=== PATIENT | male | born 1955 | race Caucasian/White ===

== ENCOUNTER 2019-07-12 14:53 | Inpatient (IN) | payer MEDICARE ==
[2019-07-12] VITALS (8 sets, daily range): BP systolic 111–148; BP diastolic 55–73
[~2019-07-12] VITALS: Ht 167.6 cm; Wt 108.9 kg
--- NOTE | 2019-07-12 07:40 | NUR ---
PATIENT VS STABLE, ON 3L NC SATURATING 96%, HIGH FOWL[place] POSITION. SAFETY MEASURES IN PLACE.. REPORT GIVEN TO PM NURSE FOR MANASA.
--- NOTE | 2019-07-12 15:00 | NUR ---
ALMA ROSA, FROM SNF, C/O BLE EDEMA x 2 WEEKS. PATIENT A/OX4, BREATHING EVEN AND UNLABORED, ON O2 AT 2LPM VIA NC. NEEDS ATTENDED. KEPT COMFORTABLE.
[2019-07-12] MEDS ORDERED: FUROSEMIDE 40 MG/4 ML VIAL ONE (15:10)
[2019-07-12 15:27] LABS: BASOPHILS % (AUTO) 0.7 % (0.0-2.0); EOSINOPHILS % (AUTO) 4.9 % (0.0-6.0); HEMATOCRIT 33 % (39-51); HEMOGLOBIN 10.8 g/dL (13.5-17.5); LYMPHOCYTES # (AUTO) 1.2 /CMM (0.8-4.8); LYMPHOCYTES % (AUTO) 19.4 % (20.0-44.0); MEAN CORPUSCULAR HGB CONC 33 g/dl (31.0-36.0); MEAN CORPUSCULAR VOLUME 93 fL (80-96); MONOCYTES # (AUTO) 0.6 /CMM (0.1-1.30); MONOCYTES % (AUTO) 9.4 % (2.0-12.0); NEUTROPHILS # (AUTO) 3.9 /CMM (1.8-8.9); NEUTROPHILS % (AUTO) 65.6 % (43.0-81.0); PLATELET COUNT (AUTO) 139 /CMM (150-450); RED BLOOD CELL COUNT(AUTO) 3.57 MIL/uL (4.5-6.0); WHITE BLOOD COUNT (AUTO) 5.9 K/uL (4.3-11.0)
[2019-07-12] MEDS ORDERED: FUROSEMIDE 40 MG/4 ML VIAL IV ONE (15:30)
[2019-07-12 15:33] LABS: CALCIUM, SERUM 8.6 mg/dL (8.5-10.1); CARBON DIOXIDE 30 mmol/L (21-32); CHLORIDE 107 mmol/L (98-107); CREATININE 1.9 mg/dL (0.6-1.3); GLUCOSE 240 mg/dL (74-106); POTASSIUM 4.3 mmol/L (3.5-5.1); SODIUM SERUM 145 mmol/L (136-145); UREA NITROGEN, BLOOD 42 mg/dL (7-18)
[2019-07-12 15:45] LABS: ALANINE AMINOTRANSFERASE 22 U/L (12-78); ALBUMIN 2.9 g/dL (3.4-5.0); ALKALINE PHOSPHATASE 117 U/L (46-116); ASPARTATE AMINOTRANSFERASE 20 U/L (15-37); B-TYPE NATRIURETIC PEPTIDE 1965 PG/ML (0-125); BILIRUBIN,TOTAL 0.3 mg/dL (0.2-1.0); MAGNESIUM 1.5 mg/dL (1.8-2.4); TOTAL PROTEIN, SERUM 7.3 g/dL (6.4-8.2)
[2019-07-12 15:51] LABS: CHOLESTEROL 125 mg/dL (<200); HDL CHOLESTEROL 34 mg/dL (40-60); LDL 65 mg/dL (0-99); TRIGLYCERIDES 216 mg/dL (30-150)
--- NOTE | 2019-07-12 16:00 | NUR ---
PATIENT GIVEN URINAL BUT UNABLE TO URINATE. URINE OBTAINED VIA STRAIGHT CATHETER, PATIENT AGREED DUE TO INCONTINENCE
[2019-07-12 16:32] LABS: APPEARANCE,URINE Clear (CLEAR); BILIRUBIN,URINE Negative (NEGATIVE); BLOOD, URINE Trace-intact Ery/uL (NEGATIVE); COLOR,URINE Yellow (YELLOW); KETONES,URINE Negative (NEGATIVE); LEUKOCYTE ESTERASE ,URINE Trace (NEGATIVE); NITRITE, URINE Negative (NEGATIVE); PROTEIN,URINE 100 mg/dl (NEGATIVE); UGLUCOSE Negative (NEGATIVE); UROBILINOGEN,URINE 0.2 EU/dL (0.2)
--- NOTE | 2019-07-12 16:43 | NUR ---
CALLED OFFICE OF DR VENEGAS, LEFT VOICEMAIL.
[2019-07-12 16:48] LABS: BACTERIA,URINE Rare /HPF (None Seen); RBC,URINE 2-3/HPF /HPF (0-2); SQUAMOUS EPITHELIAL CELL,UR Few /HPF (None Seen); URINE AMORPHOUS URATE Few /HPF (None Seen)
--- NOTE | 2019-07-12 16:53 | NUR ---
ROOM 112-2
[2019-07-12] MEDS ORDERED: LATA7.5D OP (16:54)
[2019-07-12] MEDS ORDERED: FLUT16SP BNOSTRILS (16:54)
[2019-07-12] MEDS ORDERED: METO50TA16 PO (16:54)
[2019-07-12] MEDS ORDERED: CETI-108 PO (16:54)
[2019-07-12] MEDS ORDERED: FURO-144 PO (16:54)
[2019-07-12] MEDS ORDERED: INSU100V7 SQ (16:54)
[2019-07-12] MEDS ORDERED: FLUO-120 PO (16:54)
[2019-07-12] MEDS ORDERED: IBUP-1953 PO (16:54)
[2019-07-12] MEDS ORDERED: GLIM4TAB4 PO (16:54)
[2019-07-12] MEDS ORDERED: POTA20TA83 PO (16:54)
[2019-07-12] MEDS ORDERED: LISI-603 PO (16:54)
[2019-07-12] MEDS ORDERED: TAMS-12 PO (16:54)
[2019-07-12] MEDS ORDERED: CYAN500T65 PO (16:54)
[2019-07-12] MEDS ORDERED: CHOL500052 PO (16:54)
[2019-07-12] MEDS ORDERED: METF500S7 PO (16:54)
[2019-07-12] MEDS ORDERED: ASPI-605 PO (16:54)
[2019-07-12] MEDS ORDERED: GABA600T12 PO (16:54)
--- NOTE | 2019-07-12 17:36 | NUR ---
REPORT GIVEN TO LIZA SALVADOR FOR MANASA. PATIENT TRANSFERRED VIA ACLS PROTOCOL. NO DISTRESS NOTED
--- NOTE | 2019-07-12 17:45 | NUR ---
MOTOR ROUTE CARRIER NOTES RECEIVED REPORT FROM MAHOGANY, ER NURSE. RECEIVED PT A/OX4. ARRIVED VIA GURNEY WITH MILD SOB, PUT PT ON NC 2L, HIGH [place] POSITION AND CALLED RT. ON TELE MONITOR SR 68. NO COMPLAIN OF CHEST PAIN. PAON ON BOTH LOWER EXTREMITIES. PATIENT UNABLE TO AMBULATE. PATIENT HAS BLE REDNNESS, EDEMA, WITH SCAR LOOKS LIKE CELLULITIS. SACRAR OPEN WOUND. BOTH SOLES RED AND SCARING. L THIGH REDNESS.RIGHT THIGH EXCORIATION. WOUND CONSULT ORDERED. IV ACCESS RFA #18, SL, INTaCT AND FLUSHED WELL.LUNGS are clear and bowel sounds present.patient on diaper. ALL SAFTEY MEASURE IN PLACE. BED LOCKED AND LOW, SIDE RIALS UPX3. CALL LIGHT IN REACH.
[2019-07-12] MEDS ORDERED: DEXTROSE 50%-WATER 50 ML DISP.SYRIN IV PRN (18:00)
[2019-07-12] MEDS ORDERED: ONDANSETRON HCL/PF 4 MG/2 ML VIAL IVP PRN (18:00)
[2019-07-12] MEDS: GABAPENTIN 300 MG CAPSULE PO SCH (19:48)
[2019-07-12] MEDS: NITROGLYCERIN 30 GM TUBE TP SCH (19:50)
--- NOTE | 2019-07-12 20:03 | NUR ---
ELECTRICAL ASSEMBLY SUPERVISOR NOTE PATIENT CALLED OUT FOR HELP C/O OF "I CANT BREATHE." PATIENT CURRENTLY ON 4 L NC SATURATION 86% PATIENT PLACED ON SIMPLE MASK AT 6L 02 SATURATION WENT UP TP 94% PATIENT STILL C/O SOB/ INCREASED WORK OF BREATHING, LUNG SOUNDS DIMINISHED AT THE BASES. MD RUBI MALIK ORDERED ALBUTEROL BREATHING TREATMENTS PRN AND Q6 WHILE AWAKE. RN WILL CONTINUE TO CLOSELY MONITOR.
[2019-07-12] MEDS: ENOXAPARIN SODIUM 40 MG/0.4 ML DISP.SYRIN SQ SCH (20:18)
[2019-07-12] MEDS: ALBUTEROL HALF STRENGTH 1.25 MG/3 ML VIAL.NEB NEB SCH (20:22)
--- NOTE | 2019-07-12 20:23 | NUR ---
TOYS AND GAMES HAND FINISHER NOTE PATIENT STARTED ON BREATHING TREATMENT O2 SATURATION 95% PATIENT STILL C/O DIFFICULTY BREATHING RN STILL CLOSELY MONITORING.
[2019-07-12] MEDS ORDERED: ALBUTEROL HALF STRENGTH 1.25 MG/3 ML VIAL.NEB NEB PRN (20:30)
[2019-07-12 20:44] LABS: ABG OXYGEN SATURATION 94.6 % (92.0-98.5); ABG PCO2 84.6 mmHg (35.0-45.0); ABG PH 7.149 (7.350-7.450); ABG PO2 95.5 mmHg (75.0-100.0); AaDO2 180.5 mmHg; COHb 1.4 % (0.5-1.5); MetHb 0.4 % (0.0-1.5); O2Hb 92.9 % (94.0-97.0); SITE, ABG Right Radial; VENT MODE, BG simplew mask 8L
--- NOTE | 2019-07-12 20:45 | NUR ---
CARD LACER NOTE PATIENT STILL NOTED TO BE IN RESP DISTRESS, STAT ABG ORDERED.
--- NOTE | 2019-07-12 20:50 | NUR ---
SATELLITE DISH INSTALLER NOTE RESULTS FOR ABG 7.149 pH with Co2 84.6. [facility] NOTIFIED, TRANSFER TO ICU WITH BIPAP 14/6 BACK UP RATE 18 FIO2 40
[2019-07-12] MEDS ORDERED: FUROSEMIDE 20 MG/2 ML VIAL IV SCH (21:00)
--- NOTE | 2019-07-12 21:00 | NUR ---
DRY GOODS CLERK NOTE PATIENT TRANSFERRED TO BED 259 REPORT GIVEN TO ICU NURSE
--- NOTE | 2019-07-12 21:12 | NUR ---
RT NOTE POST ABG RESULTS, PT TRANSFERRED TO ICU 259 AND PLACED ON BIPAP PER MD ORDER. BIPAP ALARMS APPEAR TO BE FUNCTIONING PROPERLY. BIPAP PLUGGED INTO RED OUTLET. NO SOB NOTED. Addendum: 07/12/19 at 2303 by TOMI BLAIR RT MEPILEX IN PLACE FOR SKIN INTEGRITY.
--- NOTE | 2019-07-12 21:12 | NUR ---
ICU/EBAY RESELLER RECEIVED REPORT FROM FANY NURSE. PT PLACED ON MONITOR. RT HERE TO PLACE PT ON BIPAP.
--- NOTE | 2019-07-12 21:30 | NUR ---
ICU/BEAN PICKER STAT CHEST XRAY WAS DONE DUE TO THE POSSIBILITY THAT PT COULD HAVE ASPIRATED.
--- NOTE | 2019-07-12 21:55 | NUR ---
ICU/MEDICAL ASSISTANT PRN COOMBS CATH WAS PLACE. PT TOLERATED THIS WELL. WILL MONITOR THIS PT'S OUTPUT. LASIX 80MG GIVEN SINCE ADMISSION TO THE HOSPITAL.
[2019-07-12] MEDS: INSULIN GLARGINE, 100 UNIT/ML CARTRIDGE SQ SCH (22:00)
--- NOTE | 2019-07-12 22:40 | NUR ---
ICU/HOOP COILER PT'S ABG WAS DONE, VALUES APPEAR TO BE IMPROVING, HOWEVER THE RT INCREASED THE FIO2 TO 50% FROM 40%. PH-7.284, PCO2-56.6, PO2-65.9, HCO3-26.2. CHARGE NURSE AWARE OF LAB VALUES. WILL MONITOR THIS PT ACCORDINGLY.
[2019-07-12 22:45] LABS: ABG BASE EXCESS -1.1 mmol/L; ABG OXYGEN SATURATION 89.7 % (92.0-98.5); ABG PCO2 56.6 mmHg (35.0-45.0); ABG PH 7.284 (7.350-7.450); ABG PO2 65.9 mmHg (75.0-100.0); AaDO2 154.2 mmHg; MetHb 0.4 % (0.0-1.5); O2Hb 88.4 % (94.0-97.0); SITE, ABG Right Radial
[2019-07-12] MEDS: LATANOPROST EYE DROP 0.005% 2.5 ML BOTTLE OP SCH (23:07)
[2019-07-12] MEDS: BLOOD SUGAR DIAGNOSTIC 1 EACH STRIP VI SCH (23:07)
--- NOTE | 2019-07-12 23:20 | NUR ---
ICU/HOME HEALTH CARE CASE MANAGER MD VENEGAS CALLED ABOUT THE LANTUS 65 UNITS THAT WAS TO BE GIVEN AT 2200 BS WAS 207. HOWEVER PT IS ON BIPAP CURRENTLY WITH NO IVF. SAID DON'T GIVE THE LANTUS 65 NOW HOWEVER DO GIVE THE SHORT ACTING. WILL CONTINUE TO MONITOR THIS PT AND HIS BLOOD SUGAR.
[2019-07-13] VITALS (36 sets, daily range): BP systolic 77–141; BP diastolic 31–83
[2019-07-13] MEDS: *INSULIN REGULAR(HUMULIN R)HUM 100 UNIT/ML VIAL SQ PRN ×2 (00:04→12:09)
[2019-07-13] MEDS: NITROGLYCERIN 30 GM TUBE TP SCH ×4 (00:07→17:22)
--- NOTE | 2019-07-13 00:10 | NUR ---
ICU/STONE CARRIAGE OPERATOR PT'S MIDNIGHT BLOOD SUGAR IS 207. THERE IS COVERAGE FOR THIS PER MD ORDERS AND HOSPITAL PROTOCOL. PT WILL CONTINUE TO MONITOR THIS SUGARS ORDERS. PT WAS TURNED AND REPOSITIONED FOR COMFORT AND CARE.
--- NOTE | 2019-07-13 02:45 | NUR ---
ICU/RUBBER GOODS FINISHER PT WAS GIVEN AM CARE.. PT TOLERATED THIS WELL, REMAINS ON CURRENT BIPAP SETTINGS WITH SATURATION AT 98%. PT WAS TURNED AND REPOSITIONED FOR COMFORT AND CARE. WILL CONTINUE TO MONITOR THIS PT.
--- NOTE | 2019-07-13 04:05 | NUR ---
ICU/FLIGHT SUPERINTENDENT AM LABS WERE DONE AWAIT FOR ANY ABNORMAL LABS
[2019-07-13 04:54] LABS: BASOPHILS % (AUTO) 0.5 % (0.0-2.0); EOSINOPHILS % (AUTO) 0.7 % (0.0-6.0); HEMATOCRIT 31 % (39-51); HEMOGLOBIN 10.3 g/dL (13.5-17.5); LYMPHOCYTES % (AUTO) 15.7 % (20.0-44.0); MEAN CORPUSCULAR HGB CONC 34 g/dl (31.0-36.0); MEAN CORPUSCULAR VOLUME 93 fL (80-96); MONOCYTES # (AUTO) 0.7 /CMM (0.1-1.30); MONOCYTES % (AUTO) 10.1 % (2.0-12.0); NEUTROPHILS # (AUTO) 4.8 /CMM (1.8-8.9); PLATELET COUNT (AUTO) 142 /CMM (150-450); RED BLOOD CELL COUNT(AUTO) 3.29 MIL/uL (4.5-6.0); WHITE BLOOD COUNT (AUTO) 6.6 K/uL (4.3-11.0)
[2019-07-13 05:04] LABS: CALCIUM, SERUM 9.1 mg/dL (8.5-10.1); CARBON DIOXIDE 33 mmol/L (21-32); CHLORIDE 110 mmol/L (98-107); CREATININE 1.9 mg/dL (0.6-1.3); GLUCOSE 132 mg/dL (74-106); POTASSIUM 4.5 mmol/L (3.5-5.1); SODIUM SERUM 147 mmol/L (136-145); UREA NITROGEN, BLOOD 38 mg/dL (7-18)
--- NOTE | 2019-07-13 05:20 | NUR ---
ICU/SIGNING TEACHER PRIMARY MD VENEGAS CAME TO SEE PT, NEW ORDERS WERE GIVEN AND NOTED AND CARRIED OUT.
[2019-07-13] MEDS ORDERED: ZOSYN IVPB 3.375 G in IV D5W 50ml IV ONE (06:30)
--- NOTE | 2019-07-13 06:30 | NUR ---
ICU/FUELER PHARMACY CALLED TO VERIFY ORDERS. ZOSYN STARTED BY RN.
[2019-07-13] MEDS ORDERED: PIPERACILLIN /TAZOBACTAM 3.375 G VIAL IV ONE (06:36)
[2019-07-13] MEDS ORDERED: FEE PK DOSING 1 MIN EA MC ONE (07:24)
[2019-07-13] MEDS ORDERED: VANCOMYCIN 1.5 GM in IV D5W 500 ML IV SCH (07:30)
[2019-07-13] MEDS ORDERED: VANCOMYCIN 1.75 GM in IV D5W 500 ML IV ONE (07:30)
--- NOTE | 2019-07-13 07:40 | NUR ---
ICU/RN PT IS ON THE BED.AWAKE ,ALERT,ORIENTED.V/S STABLE ,AFEBRILE.NO PAIN REPORTED AT THIS TIME.PT IS ON BI-PAP.SAT O2-100%..IV -HL. F/C DRAINING WITH YELLOW URINE.PT HAS GENERALIZED EDEMA.WOUND ON THE LOWER BACK AND REDNESS ON MIMI AREA. BILATERAL LOWER LEGS WOUNDS,RED SWOLLEN AND WARM.
[2019-07-13] MEDS: BLOOD SUGAR DIAGNOSTIC 1 EACH STRIP VI SCH ×4 (07:43→21:58)
[2019-07-13] MEDS: METOPROLOL TARTRATE 50 MG TABLET PO SCH ×2 (08:20→17:00)
[2019-07-13] MEDS: ASPIRIN EC 81 MG TABLET.DR PO SCH (08:20)
[2019-07-13] MEDS: FLUOXETINE HCL 20 MG CAPSULE PO SCH (08:21)
[2019-07-13] MEDS: TAMSULOSIN 0.4 MG CAP.SR.24H PO SCH (08:23)
[2019-07-13] MEDS: FUROSEMIDE 100 MG/10 ML VIAL IV SCH ×3 (08:23→15:41)
[2019-07-13] MEDS: FLUTICASONE PROPIONATE 16 GM BOTTLE NS SCH (08:23)
[2019-07-13] MEDS: GABAPENTIN 300 MG CAPSULE PO SCH ×3 (08:23→17:22)
[2019-07-13] MEDS: ALBUTEROL HALF STRENGTH 1.25 MG/3 ML VIAL.NEB NEB SCH ×3 (08:39→19:26)
[2019-07-13 09:00] LABS: THYROID STIMULATING HORMONE 4.063 uIU/mL (0.358-3.74)
[2019-07-13] MEDS ORDERED: METFORMIN 500 MG TABLET PO SCH (09:00)
[2019-07-13] MEDS ORDERED: LISINOPRIL (20MG) 20 MG TABLET PO SCH (09:00)
[2019-07-13] MEDS ORDERED: IBUPROFEN 400 MG TABLET PO SCH (09:00)
[2019-07-13] MEDS ORDERED: POTASSIUM CHLORIDE 20 MEQ TAB.PRT.SR PO SCH (09:00)
[2019-07-13] MEDS ORDERED: ASPIRIN 81 MG TAB.CHEW PO SCH (09:00)
--- NOTE | 2019-07-13 09:00 | NUR ---
ICU/RN PT IS OFF BI-PAP.ON 3L N/C SAT O2-92%.DUE MEDS ARE GIVEN ORDERED.PT EATS BREAKFAST 100% FROM HIS TRAY WITH MINIMAL ASSISTANCE. ABG DONE.
[2019-07-13] MEDS ORDERED: ALBUTEROL HALF STRENGTH 1.25 MG/3 ML VIAL.NEB NEB PRN (09:30)
[2019-07-13 09:58] LABS: ABG BASE EXCESS 2.5 mmol/L; ABG PCO2 48.7 mmHg (35.0-45.0); ABG PO2 62.1 mmHg (75.0-100.0); AaDO2 116.3 mmHg; COHb 0.8 % (0.5-1.5); MetHb 0.4 % (0.0-1.5); O2Hb 89.9 % (94.0-97.0); SITE, ABG Right Radial; VENT MODE, BG nasal cannula
[2019-07-13] MEDS: GLIMEPIRIDE 4 MG TABLET PO SCH ×2 (10:04→17:22)
--- NOTE | 2019-07-13 11:00 | NUR ---
ICU/RN PT C/O OF SOB.ON 3L N/S SAT O2-88%,RR-33.RT NOTIFIED.PLACED BACK ON BI-PAP.CONTINUE MONITORING.
[2019-07-13] MEDS: PIPERACILLIN /TAZOBACTAM 3.375 G in IV NS 0.9% 50 ML IV SCH ×3 (11:35→23:29)
[2019-07-13] MEDS ORDERED: PIPERACILLIN /TAZOBACTAM 3.375 G in IV D5W 100 ML IV SCH (12:00)
[2019-07-13] MEDS: SOD FERRIC GLUC 125 MG in IV NS 0.9% 100 ML IV SCH (15:08)
[2019-07-13 15:17] LABS: CREATININE, URINE 33.7 MG/DL (30.0-125.0); URINE TOTAL PROTEIN 52.6 mg/dL (0-11.9)
[2019-07-13 15:21] LABS: APPEARANCE,URINE CLEAR (CLEAR); BILIRUBIN,URINE NEGATIVE (NEGATIVE); BLOOD, URINE SMALL Ery/uL (NEGATIVE); COLOR,URINE YELLOW (YELLOW); KETONES,URINE NEGATIVE (NEGATIVE); LEUKOCYTE ESTERASE ,URINE NEGATIVE (NEGATIVE); NITRITE, URINE NEGATIVE (NEGATIVE); PH,URINE 5.5 (5.0-8.0); PROTEIN,URINE 30 mg/dl (NEGATIVE); UGLUCOSE NEGATIVE (NEGATIVE); UROBILINOGEN,URINE 0.2 EU/dL (0.2)
[2019-07-13 15:42] LABS: BACTERIA,URINE None seen /HPF (None Seen); MUCUS,URINE Few /LPF (None Seen); SQUAMOUS EPITHELIAL CELL,UR Few /HPF (None Seen)
[2019-07-13 15:56] LABS: EOSINOPHIL,URINE None Seen
--- NOTE | 2019-07-13 16:59 | NUR ---
ICU/RN PM CARE PROVIDED.PT PLACED ON [employer] MATRASS.WOUND CARE DONE ORDERED.DUE MEDS ARE GIVEN ORDERED.PT IS ON BI-PAP FIO2-40%,SAT O2-99-100%. V/S STABLE,AFEBRILE.NO PAIN REPORTED AT THIS TIME.HR-SR-SB -55 BPM. BS-73.CONTINUE MONITORING.
[2019-07-13] MEDS: LACTOBACILLUS RHAMNOSUS GG 1 EACH CAP.SPRINK PO SCH (17:22)
[2019-07-13] MEDS ORDERED: IV NS 0.9% 250 ML IV PRN (19:30)
--- NOTE | 2019-07-13 19:30 | NUR ---
ICU NOTES RECEIVED PT ON BIPAP,RATE OF18,40% FIO2,SAT OF 94%.OPENS EYES WHEN NAME CALLED.FOLLOWS SIMPLE VERBAL COMMANDS.
[2019-07-13] MEDS: ENOXAPARIN SODIUM 40 MG/0.4 ML DISP.SYRIN SQ SCH (20:58)
[2019-07-13] MEDS: Z GUARD REMEDY 2 OZ OINT TP SCH (20:59)
[2019-07-13] MEDS: INSULIN GLARGINE, 100 UNIT/ML CARTRIDGE SQ SCH (21:57)
[2019-07-13] MEDS: LATANOPROST EYE DROP 0.005% 2.5 ML BOTTLE OP SCH (21:57)
--- NOTE | 2019-07-13 22:00 | NUR ---
ICU NOTES BS=66MG/DL.GIVEN CUP OF PUDDING AND 1CUP OF ORANGE JUICE AND I/C WATER PER REQUEST.CONTINUES TO DIURESE.
[2019-07-14] VITALS (24 sets, daily range): BP systolic 110–154; BP diastolic 39–73
[2019-07-14] MEDS: NITROGLYCERIN 30 GM TUBE TP SCH ×4 (00:37→18:04)
[2019-07-14 04:27] LABS: BASOPHILS % (AUTO) 0.7 % (0.0-2.0); EOSINOPHILS % (AUTO) 3.1 % (0.0-6.0); HEMATOCRIT 30 % (39-51); HEMOGLOBIN 9.6 g/dL (13.5-17.5); LYMPHOCYTES % (AUTO) 18.5 % (20.0-44.0); MEAN CORPUSCULAR HGB CONC 33 g/dl (31.0-36.0); MEAN CORPUSCULAR VOLUME 94 fL (80-96); MONOCYTES # (AUTO) 0.6 /CMM (0.1-1.30); MONOCYTES % (AUTO) 10.9 % (2.0-12.0); NEUTROPHILS # (AUTO) 3.6 /CMM (1.8-8.9); NEUTROPHILS % (AUTO) 66.8 % (43.0-81.0); PLATELET COUNT (AUTO) 117 /CMM (150-450); RED BLOOD CELL COUNT(AUTO) 3.15 MIL/uL (4.5-6.0); WHITE BLOOD COUNT (AUTO) 5.4 K/uL (4.3-11.0)
[2019-07-14 04:46] LABS: ALBUMIN 2.5 g/dL (3.4-5.0); BILIRUBIN,TOTAL 0.5 mg/dL (0.2-1.0); CALCIUM, SERUM 8.8 mg/dL (8.5-10.1); CREATININE 1.9 mg/dL (0.6-1.3); MAGNESIUM 1.4 mg/dL (1.8-2.4); PHOSPHORUS 3.9 mg/dL (2.5-4.9); POTASSIUM 3.6 mmol/L (3.5-5.1); TOTAL PROTEIN, SERUM 6.5 g/dL (6.4-8.2)
[2019-07-14] MEDS: PIPERACILLIN /TAZOBACTAM 3.375 G in IV NS 0.9% 50 ML IV SCH (05:23)
[2019-07-14] MEDS: BLOOD SUGAR DIAGNOSTIC 1 EACH STRIP VI SCH ×4 (07:44→21:50)
--- NOTE | 2019-07-14 07:45 | NUR ---
ICU/RN PT IS AWAKE.ALERT,ORIENTED.V/S STABLE.T-100 F.ON BI-PAP.FIO2-40%.SAT O2-100%.SR -65 BPM ON MONITOR.F/C DRAINING WITH YELLOW URINE.WOUNDS COVERED WITH MEPILEX. BLE EDEMA NOTED , REDNESS AND WOUNDS, WARM TO TOUCH.REPOSITION FOR COMFORT.
[2019-07-14] MEDS: ALBUTEROL HALF STRENGTH 1.25 MG/3 ML VIAL.NEB NEB SCH ×3 (08:02→19:34)
[2019-07-14] MEDS: FLUTICASONE PROPIONATE 16 GM BOTTLE NS SCH (08:08)
[2019-07-14] MEDS: LACTOBACILLUS RHAMNOSUS GG 1 EACH CAP.SPRINK PO SCH ×2 (08:08→16:46)
[2019-07-14] MEDS: ASPIRIN EC 81 MG TABLET.DR PO SCH (08:08)
[2019-07-14] MEDS: GABAPENTIN 300 MG CAPSULE PO SCH ×3 (08:08→16:45)
[2019-07-14] MEDS: GLIMEPIRIDE 4 MG TABLET PO SCH ×2 (08:08→16:45)
[2019-07-14] MEDS: FLUOXETINE HCL 20 MG CAPSULE PO SCH (08:08)
[2019-07-14] MEDS: TAMSULOSIN 0.4 MG CAP.SR.24H PO SCH (08:09)
[2019-07-14] MEDS: Z GUARD REMEDY 2 OZ OINT TP SCH ×2 (08:09→21:23)
[2019-07-14] MEDS: VANCOMYCIN 1.25 GM in IV D5W 250 ML IV SCH (08:09)
[2019-07-14] MEDS: METOPROLOL TARTRATE 50 MG TABLET PO SCH ×2 (08:09→16:46)
[2019-07-14 09:09] LABS: ABG BASE EXCESS 7.7 mmol/L; ABG OXYGEN SATURATION 92.4 % (92.0-98.5); ABG PCO2 45.8 mmHg (35.0-45.0); ABG PH 7.466 (7.350-7.450); ABG PO2 65.6 mmHg (75.0-100.0); MetHb 0.8 % (0.0-1.5); O2Hb 91.7 % (94.0-97.0); SITE, ABG Left Radial; VENT MODE, BG Nasal Cannula
--- NOTE | 2019-07-14 09:30 | NUR ---
ICU/RN PT IS OFF BI-PAP.ON 3L N/C SAT O2-96-97%.V/S STABLE.PT EATS 100% FROM HIS MEAL TRAY.DUE MEDS ARE GIVEN ORDERED.LABS REVIEW.MD NOTIFIED.REPOSITION FOR COMFORT.
--- NOTE | 2019-07-14 09:56 | NUR ---
WOUND CARE CONSULT: PT PRESENTS WITH MULTIPLE SKIN ISSUES INCLUDING ABDOMINAL FOLD REDNESS, REDNESS WITH EDEMA TO BILATERAL LOWER LEGS, THICKENED SCARRING TO BUTTOCKS WITH INCONTINENCE/SHEARING ASSOCIATED SKIN DAMAGE TO THIGHS AND BUTTOCKS, PRESENT ON ADMISSION. CORIN MOON NOTED. RECOMMENDATIONS MADE FOR SKIN PROTECTION AND CARE. DISCUSSED WITH NURSING STAFF. PT ON FIRST STEP [facility]. WILL SEE PRN. BRUCE IN AGREEMENT WITH PLAN OF CARE. Addendum: 07/14/19 at 0958 by JAKY MARSHALL WNDNU Amended: Links added.
[2019-07-14] MEDS: Magnesium 1GM/D5W 100ML PREMIX 100 ML IV SCH ×3 (10:04→12:03)
[2019-07-14] MEDS: PIPERACILLIN /TAZOBACTAM 3.375 G in IV D5W 50 ML IV SCH ×2 (11:32→17:16)
--- NOTE | 2019-07-14 12:00 | NUR ---
ICU/RN PT IS SOB, SAT O2-92%,RR-45 BPM.RT NOTIFIED.PT PLACED BACK ON BI-PAP.CONTINUE MONITORING.
[2019-07-14] MEDS: INSULIN REGULAR, HUMAN 100 UNIT/ML 3 ML VIAL SQ PRN (13:42)
[2019-07-14] MEDS: SOD FERRIC GLUC 125 MG in IV NS 0.9% 100 ML IV SCH (14:02)
--- NOTE | 2019-07-14 17:00 | NUR ---
ICU/RN PM CARE PROVIDED.PT IS ON CONTINUOS BI-PAP. REDNESS ON THE NOSE NOTED FROM THE MASK.PT HAS MEPILEX ON.UNABLE TO DO PHOTO AT THIS TIME.WOUND DRESSING DONE ORDERED.
[2019-07-14] MEDS: *INSULIN REGULAR(HUMULIN R)HUM 100 UNIT/ML VIAL SQ PRN ×2 (18:07→21:55)
--- NOTE | 2019-07-14 19:34 | NUR ---
RT Pt received on BiPAP with noted settings. BiPAP is plugged into red outlet. No SOB or respiratory distress noted. Addendum: 07/15/19 at 0151 by CATARINA MACARIO RT Amended: Links added.
--- NOTE | 2019-07-14 19:45 | NUR ---
ICU/SENIOR MORTGAGE LOAN PROCESSOR RECEIVED REPORT FROM DAY SHIFT NURSE. SEE FLOWSHEET FOR ASSESSMENT. THERE ARE A COUPLE SKIN ISSUES THAT PT HAS, WHICH IS ADDRESSED ON FLOWSHEET ALONG WITH THE INTERVENTION TO EACH.PT IS ALERT X 3.PT IS CURRENTLY ON BIPAP TOLERATING THESE SETTINGS WITH SATURATION AT 93-94%. PT WAS TURNED AND REPOSITIONED FOR COMFORT AND CARE. WILL CONTINUE TO MONITOR THIS PT.
[2019-07-14] MEDS: LATANOPROST EYE DROP 0.005% 2.5 ML BOTTLE OP SCH (21:23)
[2019-07-14] MEDS: ACETAMINOPHEN 325 MG TABLET PO PRN (21:24)
[2019-07-14] MEDS: ENOXAPARIN SODIUM 40 MG/0.4 ML DISP.SYRIN SQ SCH (21:25)
--- NOTE | 2019-07-14 21:30 | NUR ---
ICU/METALS ANALYST PT COMPLAINED ABOUT PAIN, GAVE TYLENOL 650MG PO FOR THIS. WILL CONTINUE TO MONITOR HIS PAIN. CALL LIGHT IN REACH.
[2019-07-14] MEDS: INSULIN GLARGINE, 100 UNIT/ML CARTRIDGE SQ SCH (21:50)
--- NOTE | 2019-07-14 22:10 | NUR ---
ICU/RISK PREVENTION ENGINEER PT WAS GIVEN PM CARE, ALONG WITH ORAL CARE. PT TOLERATED THIS WELL, REMAINS ON CURRENT BIPAP SETTINGS WITH SATURATION AT 93%. PT WAS TURNED AND REPOSITIONED FOR COMFORT AND CARE. WILL CONTINUE TO MONITOR THIS PT.
--- NOTE | 2019-07-14 23:00 | NUR ---
ICU/SENIOR ENGINEERING TECH PT'S BLOOD SUGAR IS 221, PT GETS 65UNITS OF LANTUS HOWEVER IN AM BLOOD SUGAR DROPS TO LOW 100'S. THIS WAS COVERED WITH REGULAR SHORT ACTING. WILL MONITOR THIS SUGAR ORDERED BY .
[2019-07-15] VITALS (25 sets, daily range): BP systolic 107–156; BP diastolic 49–65
[2019-07-15] MEDS: PIPERACILLIN /TAZOBACTAM 3.375 G in IV D5W 50 ML IV SCH ×5 (00:27→23:19)
[2019-07-15] MEDS: NITROGLYCERIN 30 GM TUBE TP SCH ×4 (00:42→17:24)
--- NOTE | 2019-07-15 02:45 | NUR ---
ICU/RISK CONTROL OFFICER PT WAS GIVEN AM CARE, ALONG WITH ORAL CARE. PT TOLERATED THIS WELL, REMAINS ON CURRENT BIPAP SETTINGS WITH SATURATION AT 93%. PT WAS TURNED AND REPOSITIONED FOR COMFORT AND CARE. WILL CONTINUE TO MONITOR THIS PT.
--- NOTE | 2019-07-15 04:10 | NUR ---
ICU/CORE EXTRUDER AM LABS WERE DRAWN, AWAIT FOR ANY ABNORMAL LABS
[2019-07-15 04:58] LABS: BASOPHILS % (AUTO) 0.5 % (0.0-2.0); EOSINOPHILS % (AUTO) 2.7 % (0.0-6.0); HEMATOCRIT 30 % (39-51); HEMOGLOBIN 9.5 g/dL (13.5-17.5); LYMPHOCYTES # (AUTO) 1.3 /CMM (0.8-4.8); LYMPHOCYTES % (AUTO) 20.9 % (20.0-44.0); MEAN CORPUSCULAR HGB CONC 32 g/dl (31.0-36.0); MEAN CORPUSCULAR VOLUME 94 fL (80-96); MONOCYTES # (AUTO) 0.9 /CMM (0.1-1.30); MONOCYTES % (AUTO) 14.3 % (2.0-12.0); NEUTROPHILS # (AUTO) 3.7 /CMM (1.8-8.9); NEUTROPHILS % (AUTO) 61.6 % (43.0-81.0); PLATELET COUNT (AUTO) 122 /CMM (150-450); RED BLOOD CELL COUNT(AUTO) 3.14 MIL/uL (4.5-6.0); WHITE BLOOD COUNT (AUTO) 6.1 K/uL (4.3-11.0)
[2019-07-15 05:11] LABS: CALCIUM, SERUM 8.7 mg/dL (8.5-10.1); CREATININE 1.8 mg/dL (0.6-1.3); MAGNESIUM 2.3 mg/dL (1.8-2.4); POTASSIUM 3.5 mmol/L (3.5-5.1)
[2019-07-15] MEDS: ALBUTEROL HALF STRENGTH 1.25 MG/3 ML VIAL.NEB NEB SCH ×3 (07:47→19:42)
--- NOTE | 2019-07-15 07:50 | NUR ---
RECONCILING CLERK: pt.is sleepy, easy to awake up, Ox3, SR, SBP over 100, O2sat.over 96% on Bipap now, c/o lower legs pain 5-7/10 with reposition, BS 177/covered by ISS, stool OB order is still active, plan: remove Bipap by Katina, RT
[2019-07-15] MEDS: BLOOD SUGAR DIAGNOSTIC 1 EACH STRIP VI SCH ×4 (08:02→22:12)
[2019-07-15] MEDS: INSULIN REGULAR, HUMAN 100 UNIT/ML 3 ML VIAL SQ PRN ×3 (08:02→17:21)
[2019-07-15] MEDS: VANCOMYCIN 1.25 GM in IV D5W 250 ML IV SCH (08:04)
[2019-07-15] MEDS: FLUOXETINE HCL 20 MG CAPSULE PO SCH (08:37)
[2019-07-15] MEDS: ASPIRIN EC 81 MG TABLET.DR PO SCH (08:37)
[2019-07-15] MEDS: TAMSULOSIN 0.4 MG CAP.SR.24H PO SCH (08:37)
[2019-07-15] MEDS: GLIMEPIRIDE 4 MG TABLET PO SCH ×2 (08:39→17:10)
[2019-07-15] MEDS: LACTOBACILLUS RHAMNOSUS GG 1 EACH CAP.SPRINK PO SCH ×2 (08:39→17:10)
[2019-07-15] MEDS: METOPROLOL TARTRATE 50 MG TABLET PO SCH ×2 (08:40→17:10)
[2019-07-15] MEDS: FLUTICASONE PROPIONATE 16 GM BOTTLE NS SCH (08:40)
[2019-07-15] MEDS: Z GUARD REMEDY 2 OZ OINT TP SCH ×2 (08:48→21:43)
[2019-07-15] MEDS: GABAPENTIN 300 MG CAPSULE PO SCH ×4 (08:48→17:10)
--- NOTE | 2019-07-15 09:05 | NUR ---
BOW TACKER: is in room, updated with pt.current condition, VS, I/O, O2sat., pain level/location, meds, labs, next step: remove Bipap/monitoring/waiting
--- NOTE | 2019-07-15 09:45 | NUR ---
SOLAR ENERGY INSTALLATION MANAGER: pt.is off of Bipap now, on 4L n/c, no c/o, no SOB, O2 sat 92-94% now, no c/o any pain now, SR, good appetite/swallow patent+, continue O2sat monitoring
--- NOTE | 2019-07-15 12:00 | NUR ---
PHYSICAL SCIENTIST: is in room, updated with pt.current status, VS, O2sat., I/O, labs, Meds, see new orders
[2019-07-15 12:07] LABS: PTH, INTACT 38 pg/mL (15-65)
--- NOTE | 2019-07-15 12:23 | NUR ---
BARGE WORKER: pt is desaturated to 85-88% easily with attempt to clean up pt, SOB, saying: can't breath, pleased back on Bipap
--- NOTE | 2019-07-15 12:25 | NUR ---
ADJUSTER LEADER: pt feels better, no SOB, O2sat 96-100%, on Bipap, getting resp Tx now
[2019-07-15] MEDS: SOD FERRIC GLUC 125 MG in IV NS 0.9% 100 ML IV SCH (13:31)
[2019-07-15 15:12] LABS: OCCULT BLOOD STOOL NEGATIVE (NEGATIVE)
[2019-07-15] MEDS: ACETAMINOPHEN 325 MG TABLET PO PRN (17:38)
--- NOTE | 2019-07-15 18:15 | NUR ---
INNER TUBE INSERTER: pt.is on Bipap, O2sat. over 96%, no SOB, no any pain now, no c/o now, HR: rest-58-62, wmizeonj-76-93, SBP over 100, all PM/skin/wound care done, stool OB negative, BS 203/covered by ISS, kitchen called to verify order (60gm carb, 1800kcal), will notify DT for verification/unable to change order now, pt said: comfortable with Bipap, mepilex was applied for skin protective measure under Bipap mask+zquard
--- NOTE | 2019-07-15 19:20 | NUR ---
ICU/CORPORATE LAWYER RECEIVED REPORT FROM DAY SHIFT NURSE. SEE FLOWSHEET FOR ASSESSMENT. THERE ARE A COUPLE SKIN ISSUES THAT PT HAS, WHICH IS ADDRESSED ON FLOWSHEET ALONG WITH THE INTERVENTION TO EACH.PT IS ALERT X 3.PT IS CURRENTLY ON BIPAP TOLERATING THESE SETTINGS WITH SATURATION AT 93-94%. PT WAS TURNED AND REPOSITIONED FOR COMFORT AND CARE. WILL CONTINUE TO MONITOR THIS PT.
--- NOTE | 2019-07-15 19:52 | NUR ---
RT PT RECEIVED ON BIPAP WITH NOTED SETTING. PT TOLERATING SETTING WELL. PT HAS PRESSURE ULCER ON BRIDGE OF NOSE. MEPILEX WAS IN PLACE. RN IS AWARE. MASK WAS SWAPPED OUT TO MOUTH ONLY MASK TO ALLOW NOSE SOME REST. WILL CONTINUE TO MONITOR. Addendum: 07/15/19 at 1955 by AURY MONTALVO RT Amended: Links added. Addendum: 07/15/19 at 1958 by AURY MONTALVO RT RT PT RECEIVED ON BIPAP WITH NOTED SETTING. PT TOLERATING SETTING WELL. PT HAS PRESSURE ULCER ON BRIDGE OF NOSE. MEPILEX WAS IN PLACE. RN IS AWARE. MASK WAS SWAPPED OUT TO MOUTH ONLY MASK TO GIVE PRESSURE ULCER A BREAK. WILL CONTINUE TO MONITOR
--- NOTE | 2019-07-15 21:45 | NUR ---
ICU/MANAGER OF DISTRIBUTION PT HAS NASAL BRIDGE BREAKDOWN CAUSES FROM THE BIPAP. PHOTO WOUND DOCUMENTATION WAS PLACED INTO PT'S CHART. EVERT WAS APPLIED TO THIS. RT ALSO CHANGED OUT MASK.
[2019-07-15] MEDS: INSULIN GLARGINE, 100 UNIT/ML CARTRIDGE SQ SCH (22:00)
[2019-07-15] MEDS: LATANOPROST EYE DROP 0.005% 2.5 ML BOTTLE OP SCH (22:13)
[2019-07-15] MEDS: ENOXAPARIN SODIUM 40 MG/0.4 ML DISP.SYRIN SQ SCH (22:14)
[2019-07-15] MEDS: *INSULIN REGULAR(HUMULIN R)HUM 100 UNIT/ML VIAL SQ PRN (22:15)
--- NOTE | 2019-07-15 22:30 | NUR ---
ICU/OPERATIONAL COMMUNICATION CHIEF PT WAS TURNED AND REPOSITIONED FOR COMFORT AND CARE. PT REMAINS ON BIPAP WITH SATURATION AT 93-95%. WILL CONTINUE TO MONITOR THIS PT.
--- NOTE | 2019-07-15 23:20 | NUR ---
ICU/MANAGER OUTREACH PT'S BLOOD SUGAR IS 167, PT GETS 65 UNITS OF LANTUS HOWEVER IN AM BLOOD SUGAR DROPS TO 100'S. THIS WAS COVERED WITH REGULAR SHORT ACTING ONLY NOT LONG ACTING. WILL MONITOR THIS SUGAR ORDERED BY .
[2019-07-16] VITALS (29 sets, daily range): BP systolic 118–146; BP diastolic 42–85
[2019-07-16] MEDS: NITROGLYCERIN 30 GM TUBE TP SCH ×5 (00:36→23:50)
--- NOTE | 2019-07-16 02:10 | NUR ---
ICU/ONE PIECE EXPANSION MAKER HAND PT WAS GIVEN AM CARE, ALONG WITH ORAL CARE. PT TOLERATED THIS WELL, REMAINS ON CURRENT BIPAP SETTINGS WITH SATURATION AT 93%. PT WAS TURNED AND REPOSITIONED FOR COMFORT AND CARE. WILL CONTINUE TO MONITOR THIS PT.
--- NOTE | 2019-07-16 04:30 | NUR ---
ICU/CREATIVE/ART DIRECTOR AM LABS WERE DRAWN, AWAIT FOR ANY ABNORMAL LABS
[2019-07-16 05:06] LABS: CALCIUM, SERUM 8.2 mg/dL (8.5-10.1); CREATININE 1.8 mg/dL (0.6-1.3); POTASSIUM 3.8 mmol/L (3.5-5.1)
[2019-07-16] MEDS: PIPERACILLIN /TAZOBACTAM 3.375 G in IV D5W 50 ML IV SCH ×4 (05:35→23:48)
--- NOTE | 2019-07-16 07:29 | NUR ---
LOAN EXPEDITOR NOTE PATIENT IN BED , ON IPAP MACHINE ORDERED , ON TELE MONITOR HR 55 , WITH COOMBS CATH TO GRAVITY WITH YELLOW COLOR URINE , RT UPPER ARM MID LINE IN PLACE RT AC HL IN PLACE ,AND INTACT BED I LOWER AND LOCKED POSITION , CALL LIGHT WITHIN REACH , WILL CONT TO MONITOR
[2019-07-16] MEDS: ALBUTEROL HALF STRENGTH 1.25 MG/3 ML VIAL.NEB NEB SCH ×3 (07:35→20:13)
[2019-07-16] MEDS: VANCOMYCIN 1.25 GM in IV D5W 250 ML IV SCH (07:56)
[2019-07-16] MEDS: LACTOBACILLUS RHAMNOSUS GG 1 EACH CAP.SPRINK PO SCH ×2 (08:00→16:25)
[2019-07-16] MEDS: ASPIRIN EC 81 MG TABLET.DR PO SCH (08:00)
[2019-07-16] MEDS: GABAPENTIN 300 MG CAPSULE PO SCH ×3 (08:00→16:25)
[2019-07-16] MEDS: FLUTICASONE PROPIONATE 16 GM BOTTLE NS SCH (08:00)
[2019-07-16] MEDS: GLIMEPIRIDE 4 MG TABLET PO SCH ×2 (08:00→16:25)
[2019-07-16] MEDS: FLUOXETINE HCL 20 MG CAPSULE PO SCH (08:00)
[2019-07-16] MEDS: TAMSULOSIN 0.4 MG CAP.SR.24H PO SCH (08:00)
[2019-07-16] MEDS: METOPROLOL TARTRATE 50 MG TABLET PO SCH ×3 (08:01→16:25)
[2019-07-16] MEDS: Z GUARD REMEDY 2 OZ OINT TP SCH ×2 (08:03→22:36)
[2019-07-16] MEDS: BLOOD SUGAR DIAGNOSTIC 1 EACH STRIP VI SCH ×4 (08:03→22:31)
--- NOTE | 2019-07-16 09:03 | NUR ---
MILIEU COUNSELOR NOTE SEEN BY DR DUBON FIREARMS MODEL MAKER NOTIFIED THAT HEART RATE WAS SB 55 AND OW HR 80 OK TO GIVE METOPROLOL AT THIS TIME
--- NOTE | 2019-07-16 09:05 | NUR ---
PSYCHOLOGIST COUNSELING NOTE SEEN Y DR RICHTER AND AND DR LOPES DRESSMAKER GARMENT FITTER AWARE THAT LAST MIGHT HAS BIPAP AND ONLY ABOUT 3HOUR NC, FOR NOW HAD BREAKFAST WELL, AND OK PILLS WELL , ON MC 3L SAT 93% ,WILL CONT TO MONITOR CLOSELY
--- NOTE | 2019-07-16 09:47 | NUR ---
FOAM RUBBER FABRICATOR NOTE BACK TO BIPAP, C\O SOB ,RT AT BEDSIDE
[2019-07-16] MEDS: INSULIN REGULAR, HUMAN 100 UNIT/ML 3 ML VIAL SQ PRN ×2 (11:58→17:10)
--- NOTE | 2019-07-16 12:00 | NUR ---
WILDLIFE ECOLOGIST NOTE ON O2 3 L VIA NC , SAT 94% NO SOB NOTED ,ATE LUNCH, FED BY RN
--- NOTE | 2019-07-16 14:26 | NUR ---
THEATRE ARTS PROFESSOR NOTE C\O AGAIN SOB ,NOTED SAT 89% ,RT AT BEDSIDE, PLACED ON BIPAP SETTING ORDERED, WILL MONITOR
--- NOTE | 2019-07-16 14:38 | NUR ---
RECEP NOTE CALLED TO PHARMACY TO BRING FERRLECIT X2, STATED THAT WILL BRING SOON
[2019-07-16] MEDS: SOD FERRIC GLUC 125 MG in IV NS 0.9% 100 ML IV SCH (15:02)
--- NOTE | 2019-07-16 18:31 | NUR ---
CSR NOTE FED BY STAFF ,ATE 100 % , BACK TO BIAPA SETTING ORDERED SAT 98%, NOT IN DISTRESS , WILL CONT TO MONITOR CLOSELY
--- NOTE | 2019-07-16 19:20 | NUR ---
ICU/CROSS TIE MAKER RECEIVED REPORT FROM DAY SHIFT NURSE. SEE FLOWSHEET FOR ASSESSMENT. THERE ARE A COUPLE SKIN ISSUES THAT PT HAS, WHICH IS ADDRESSED ON FLOWSHEET ALONG WITH THE INTERVENTION TO EACH.PT IS ALERT X 3.PT IS CURRENTLY ON BIPAP TOLERATING THESE SETTINGS WITH SATURATION AT 95%. PT WAS TURNED AND REPOSITIONED FOR COMFORT AND CARE. WILL CONTINUE TO MONITOR THIS PT.
[2019-07-16] MEDS: ACETAMINOPHEN 325 MG TABLET PO PRN (19:36)
--- NOTE | 2019-07-16 19:40 | NUR ---
ICU/LEAD INSPECTOR PT COMPLAINED ABOUT PAIN, WHICH IS RATED AT 5/10. TYLENOL 650MG GIVEN PO FOR THIS. PAIN IS TO LOWER EXTREMITIES. WILL MONITOR PT'S PAIN LEVEL. CALL LIGHT WITHIN REACH.
[2019-07-16] MEDS: INSULIN GLARGINE, 100 UNIT/ML CARTRIDGE SQ SCH (22:00)
[2019-07-16] MEDS: ENOXAPARIN SODIUM 40 MG/0.4 ML DISP.SYRIN SQ SCH (22:37)
[2019-07-16] MEDS: LATANOPROST EYE DROP 0.005% 2.5 ML BOTTLE OP SCH (22:39)
[2019-07-16] MEDS: *INSULIN REGULAR(HUMULIN R)HUM 100 UNIT/ML VIAL SQ PRN (22:42)
--- NOTE | 2019-07-16 22:45 | NUR ---
ICU/ALLEY WORKER PT'S BLOOD SUGAR IS 213, PT GETS 65 UNITS OF LANTUS AT NIGHT HOWEVER IN AM BLOOD SUGAR DROPS TO 100'S. CURRENT BLOOD SUGAR WAS COVERED WITH REGULAR SHORT ACTING ONLY NOT THE LONG ACTING. WILL MONITOR THIS SUGAR ORDERED BY .
[2019-07-17] VITALS (26 sets, daily range): BP systolic 91–165; BP diastolic 48–111
--- NOTE | 2019-07-17 00:20 | NUR ---
ICU/FOUNTAIN CLERK PT WAS TURNED AND REPOSITIONED FOR COMFORT AND CARE. PT REMAINS ON BIPAP WITH SATURATION AT 95%. WILL CONTINUE TO MONITOR THIS PT. CALL LIGHT WITHIN REACH. NO ACUTE DISTRESS SEEN AT THIS TIME.
--- NOTE | 2019-07-17 02:30 | NUR ---
ICU/AUTOMATIC PINSETTER ADJUSTER PT WAS GIVEN AM CARE, ALONG WITH ORAL CARE. PT TOLERATED THIS WELL, REMAINS ON CURRENT BIPAP SETTINGS WITH SATURATION AT 93%. AT THIS TIME WEDNESDAY WOUND DOCUMENTATION WAS DONE, PER HOSPITAL POLICY. PT WAS TURNED AND REPOSITIONED FOR COMFORT AND CARE. WILL CONTINUE TO MONITOR THIS PT. CALL LIGHT WITHIN REACH.
--- NOTE | 2019-07-17 04:50 | NUR ---
ICU/BALANCER AM LABS WERE DRAWN, AWAIT FOR ANY ABNORMAL LABS
[2019-07-17 05:14] LABS: BASOPHILS % (AUTO) 0.8 % (0.0-2.0); EOSINOPHILS % (AUTO) 6.2 % (0.0-6.0); HEMATOCRIT 29 % (39-51); HEMOGLOBIN 9.5 g/dL (13.5-17.5); LYMPHOCYTES # (AUTO) 1.1 /CMM (0.8-4.8); LYMPHOCYTES % (AUTO) 20.5 % (20.0-44.0); MEAN CORPUSCULAR HGB CONC 33 g/dl (31.0-36.0); MEAN CORPUSCULAR VOLUME 94 fL (80-96); MONOCYTES # (AUTO) 0.6 /CMM (0.1-1.30); MONOCYTES % (AUTO) 11.1 % (2.0-12.0); NEUTROPHILS # (AUTO) 3.2 /CMM (1.8-8.9); NEUTROPHILS % (AUTO) 61.4 % (43.0-81.0); PLATELET COUNT (AUTO) 127 /CMM (150-450); RED BLOOD CELL COUNT(AUTO) 3.12 MIL/uL (4.5-6.0); WHITE BLOOD COUNT (AUTO) 5.2 K/uL (4.3-11.0)
[2019-07-17 05:25] LABS: CALCIUM, SERUM 8.6 mg/dL (8.5-10.1); CREATININE 1.7 mg/dL (0.6-1.3); MAGNESIUM 2.1 mg/dL (1.8-2.4); PHOSPHORUS 2.9 mg/dL (2.5-4.9); POTASSIUM 3.8 mmol/L (3.5-5.1)
[2019-07-17] MEDS: PIPERACILLIN /TAZOBACTAM 3.375 G in IV D5W 50 ML IV SCH ×3 (05:56→17:01)
[2019-07-17] MEDS: NITROGLYCERIN 30 GM TUBE TP SCH ×3 (05:57→17:02)
--- NOTE | 2019-07-17 07:15 | NUR ---
TAX SERVICES PROFESSIONAL NOTES RECEIVED BEDSIDE REPORT. PATIENT SLEEPING ABLE TO AROUSE WITH VOICE AND TOUCH NO S/S OF RESPIRATORY DISTRESS TOLERATING BIPAP SETTINGS ORDERED. SINUS ON MONITOR. COOMBS CATH DRAINING CLEAR YELLOW URINE EUSEBIO MIDLINE TKO RAC # [address] GAU[address] SL. SAFETY AND ASPIRATION PRECAUTIONS IN PLACE BED IN LOW LOCKED POSITION CALL LIGHT WITHIN REACH WILL CONT TO MONITOR ACCORDINGLY
[2019-07-17] MEDS: ALBUTEROL HALF STRENGTH 1.25 MG/3 ML VIAL.NEB NEB SCH ×3 (07:33→19:57)
[2019-07-17] MEDS: VANCOMYCIN 1.25 GM in IV D5W 250 ML IV SCH (08:04)
[2019-07-17] MEDS: BLOOD SUGAR DIAGNOSTIC 1 EACH STRIP VI SCH ×4 (08:10→21:29)
[2019-07-17] MEDS: GABAPENTIN 300 MG CAPSULE PO SCH ×3 (08:45→17:01)
[2019-07-17] MEDS: METOPROLOL TARTRATE 50 MG TABLET PO SCH ×2 (08:45→17:01)
[2019-07-17] MEDS: ASPIRIN EC 81 MG TABLET.DR PO SCH (08:45)
[2019-07-17] MEDS: GLIMEPIRIDE 4 MG TABLET PO SCH ×2 (08:45→17:01)
[2019-07-17] MEDS: FLUOXETINE HCL 20 MG CAPSULE PO SCH (08:45)
[2019-07-17] MEDS: TAMSULOSIN 0.4 MG CAP.SR.24H PO SCH (08:45)
[2019-07-17] MEDS: LACTOBACILLUS RHAMNOSUS GG 1 EACH CAP.SPRINK PO SCH ×2 (08:45→17:01)
[2019-07-17] MEDS: FLUTICASONE PROPIONATE 16 GM BOTTLE NS SCH (08:46)
[2019-07-17] MEDS: Z GUARD REMEDY 2 OZ OINT TP SCH ×2 (08:46→21:34)
[2019-07-17] MEDS: INSULIN REGULAR, HUMAN 100 UNIT/ML 3 ML VIAL SQ PRN ×3 (08:47→17:17)
--- NOTE | 2019-07-17 09:00 | NUR ---
PT OFF BIPAIP PLACED ON NASAL CANNULA 3 LTRS TOLERATING WELL
[2019-07-17 09:21] LABS: ABG BASE EXCESS 8.4 mmol/L; ABG OXYGEN SATURATION 92.1 % (92.0-98.5); ABG PCO2 53.4 mmHg (35.0-45.0); ABG PH 7.422 (7.350-7.450); ABG PO2 63.3 mmHg (75.0-100.0); AaDO2 102.4 mmHg; COHb 0.4 % (0.5-1.5); MetHb 0.5 % (0.0-1.5); O2Hb 91.3 % (94.0-97.0); SITE, ABG Right Radial; VENT MODE, BG N/C
[2019-07-17 12:06] LABS: *SPE A/G RATIO 0.7 (0.7-1.7); *SPE ALBUMIN 2.5 g/dL (2.9-4.4); *SPE ALPHA-1-GLOBULIN 0.3 g/dL (0.0-0.4); *SPE GLOBULIN, TOTAL 3.4 g/dL (2.2-3.9); *SPE M-SPIKE Not Observed g/dL (Not Observed); *SPEGAMMA GLOBULIN 1.1 g/dL (0.4-1.8)
--- NOTE | 2019-07-17 12:13 | NUR ---
BED BATH GIVEN ORAL CARE DONE. PATIENT REQUESTED TO BE [PLACED BACK ON BIPAP
[2019-07-17] MEDS: SOD FERRIC GLUC 125 MG in IV NS 0.9% 100 ML IV SCH (15:57)
--- NOTE | 2019-07-17 16:14 | NUR ---
REPORT ENDORSED TO JERILYN SALVADOR FOR MANASA
[2019-07-17] MEDS ORDERED: FUROSEMIDE 40 MG/4 ML VIAL IV ONE (17:30)
--- NOTE | 2019-07-17 18:38 | NUR ---
RN CLOSING NOTES PT A/O. ON 02 VIA NC AT 4LPM. NO RESPIRATORY DISTRESS NOTED. NO SOB NOTED. DENIES ANY PAIN. TOLERATING PO MEALS WELL. IV LINE IN PLACE. FC IN PLACE. KEPT CLEAN AND DRY. REPOSITIONED Q2. BLE ELEVATED. WILL ENDORSE FOR CONTINUITY OF CARE.
--- NOTE | 2019-07-17 20:00 | NUR ---
OUTSIDE SALES - NOTES - RECEIVED REPORT FROM DAY SHIFT NURSE. SEE FLOWSHEET FOR ASSESSMENT. THERE ARE A COUPLE SKIN ISSUES THAT PT HAS, WHICH IS ADDRESSED ON FLOWSHEET ALONG WITH THE INTERVENTION TO EACH. PT IS ALERT X 3. PT IS CURRENTLY ON BIPAP TOLERATING THESE SETTINGS. PT WAS TURNED AND REPOSITIONED FOR COMFORT AND CARE. WILL CONTINUE TO MONITOR THIS PT.
[2019-07-17] MEDS: ENOXAPARIN SODIUM 40 MG/0.4 ML DISP.SYRIN SQ SCH (21:28)
[2019-07-17] MEDS: LATANOPROST EYE DROP 0.005% 2.5 ML BOTTLE OP SCH (21:29)
[2019-07-17] MEDS: INSULIN GLARGINE, 100 UNIT/ML CARTRIDGE SQ SCH (21:30)
[2019-07-17] MEDS: *INSULIN REGULAR(HUMULIN R)HUM 100 UNIT/ML VIAL SQ PRN (21:32)
[2019-07-18] VITALS (23 sets, daily range): BP systolic 111–156; BP diastolic 24–77
[2019-07-18] MEDS: PIPERACILLIN /TAZOBACTAM 3.375 G in IV D5W 50 ML IV SCH ×3 (01:51→11:44)
[2019-07-18] MEDS: NITROGLYCERIN 30 GM TUBE TP SCH ×4 (01:52→17:30)
[2019-07-18 04:22] LABS: BASOPHILS % (AUTO) 0.6 % (0.0-2.0); EOSINOPHILS % (AUTO) 5.9 % (0.0-6.0); HEMATOCRIT 28 % (39-51); HEMOGLOBIN 9.1 g/dL (13.5-17.5); LYMPHOCYTES % (AUTO) 18.1 % (20.0-44.0); MEAN CORPUSCULAR HGB CONC 32 g/dl (31.0-36.0); MEAN CORPUSCULAR VOLUME 94 fL (80-96); MONOCYTES # (AUTO) 0.6 /CMM (0.1-1.30); MONOCYTES % (AUTO) 11.4 % (2.0-12.0); NEUTROPHILS # (AUTO) 3.4 /CMM (1.8-8.9); PLATELET COUNT (AUTO) 141 /CMM (150-450); RED BLOOD CELL COUNT(AUTO) 3.02 MIL/uL (4.5-6.0); WHITE BLOOD COUNT (AUTO) 5.3 K/uL (4.3-11.0)
[2019-07-18 04:37] LABS: CALCIUM, SERUM 8.6 mg/dL (8.5-10.1); CREATININE 1.7 mg/dL (0.6-1.3); MAGNESIUM 2.2 mg/dL (1.8-2.4); POTASSIUM 3.7 mmol/L (3.5-5.1)
--- NOTE | 2019-07-18 06:53 | NUR ---
DATA VIRTUALIZATION CONSULTANT - CLOSING NOTES - PT A/OX3, STILL ON BIPAP, NO RESPIRATORY DISTRESS NOTED. NO SOB NOTED. DENIES ANY PAIN. IV LINE IN PLACE. FC IN PLACE. KEPT CLEAN AND DRY. REPOSITIONED Q2. BLE ELEVATED. WILL ENDORSE FOR CONTINUITY OF CARE.
--- NOTE | 2019-07-18 07:15 | NUR ---
RN INITIAL NOTES RECEIVED PT A/O, ON BIPAP. NO RESPIRATORY DISTRESS NOTED. NO SOB NOTED. DENIES ANY PAIN. HOB ELEVATED. EUSEBIO MIDLINE IN PLACE. FC IN PLACE. PT COMFORTABLE. BLE ELEVATED. CALL LIGHT WITHIN REACH. WILL MONITOR
[2019-07-18] MEDS: BLOOD SUGAR DIAGNOSTIC 1 EACH STRIP VI SCH ×4 (07:59→21:55)
[2019-07-18] MEDS: GLIMEPIRIDE 4 MG TABLET PO SCH ×2 (08:18→17:30)
[2019-07-18] MEDS: FLUTICASONE PROPIONATE 16 GM BOTTLE NS SCH (08:18)
[2019-07-18] MEDS: FLUOXETINE HCL 20 MG CAPSULE PO SCH (08:18)
[2019-07-18] MEDS: GABAPENTIN 300 MG CAPSULE PO SCH ×3 (08:18→17:30)
[2019-07-18] MEDS: LACTOBACILLUS RHAMNOSUS GG 1 EACH CAP.SPRINK PO SCH ×2 (08:18→17:30)
[2019-07-18] MEDS: METOPROLOL TARTRATE 50 MG TABLET PO SCH ×2 (08:18→17:30)
[2019-07-18] MEDS: VANCOMYCIN 1.25 GM in IV D5W 250 ML IV SCH (08:18)
[2019-07-18] MEDS: TAMSULOSIN 0.4 MG CAP.SR.24H PO SCH (08:18)
[2019-07-18] MEDS: ASPIRIN EC 81 MG TABLET.DR PO SCH (08:18)
[2019-07-18] MEDS: Z GUARD REMEDY 2 OZ OINT TP SCH ×2 (08:19→21:55)
[2019-07-18] MEDS: INSULIN REGULAR, HUMAN 100 UNIT/ML 3 ML VIAL SQ PRN ×3 (08:27→17:42)
[2019-07-18] MEDS: ALBUTEROL HALF STRENGTH 1.25 MG/3 ML VIAL.NEB NEB SCH ×3 (08:50→19:58)
--- NOTE | 2019-07-18 12:00 | NUR ---
RN NOTES SEEN AND EXAMINED BY DR VENEGAS. AWARE OF LATEST LAB VALUES AND CXR RESULT. PT ON VIA NC AT 3LPM. HOB ELEVATED. TOLERATING PO MEAL WELL, MAX ASSIST. NOCTURAL BIPAP. WILL CONTINUE TO MONITOR
[2019-07-18] MEDS ORDERED: FUROSEMIDE 40 MG/4 ML VIAL IV ONE (12:30)
--- NOTE | 2019-07-18 13:38 | NUR ---
RT PT SLEEPING. TREATMENT NOT GIVEN. NO SOB NOTED.
--- NOTE | 2019-07-18 18:45 | NUR ---
RN NOTES PT TRANSFERRED TO ROOM 111-1. PT A/OX, ON 02 VIA NC. NO RESPIRATORY DISTRESS NOTED. NO SOB NOTED. DENIES ANY PAIN. REPORT GIVEN TO JOHNNY Gutierres RN. TOOK OVER PT'S CARE. PT IN STABLE CONDITION
--- NOTE | 2019-07-18 20:42 | NUR ---
PT PLACED ON NOC BIPAP. NOTIFIED RN.
[2019-07-18] MEDS: ENOXAPARIN SODIUM 40 MG/0.4 ML DISP.SYRIN SQ SCH (21:54)
[2019-07-18] MEDS: LATANOPROST EYE DROP 0.005% 2.5 ML BOTTLE OP SCH (21:55)
[2019-07-18] MEDS: INSULIN GLARGINE, 100 UNIT/ML CARTRIDGE SQ SCH (22:03)
[2019-07-18] MEDS: *INSULIN REGULAR(HUMULIN R)HUM 100 UNIT/ML VIAL SQ PRN (22:05)
[2019-07-19] VITALS (8 sets, daily range): BP systolic 110–151; BP diastolic 54–75
[2019-07-19] MEDS: NITROGLYCERIN 30 GM TUBE TP SCH ×4 (00:35→17:05)
--- NOTE | 2019-07-19 06:33 | NUR ---
PT TAKEN OFF BIPAP AND PLACED ON 3L NC. RN NOTIFIED.
[2019-07-19 07:15] LABS: CALCIUM, SERUM 8.5 mg/dL (8.5-10.1); CREATININE 1.5 mg/dL (0.6-1.3); MAGNESIUM 1.9 mg/dL (1.8-2.4); POTASSIUM 3.8 mmol/L (3.5-5.1)
[2019-07-19 07:21] LABS: BASOPHILS % (AUTO) 0.6 % (0.0-2.0); EOSINOPHILS % (AUTO) 6.1 % (0.0-6.0); HEMATOCRIT 29 % (39-51); HEMOGLOBIN 9.5 g/dL (13.5-17.5); LYMPHOCYTES % (AUTO) 19.7 % (20.0-44.0); MEAN CORPUSCULAR HGB CONC 33 g/dl (31.0-36.0); MEAN CORPUSCULAR VOLUME 93 fL (80-96); MONOCYTES # (AUTO) 0.5 /CMM (0.1-1.30); MONOCYTES % (AUTO) 10.6 % (2.0-12.0); NEUTROPHILS # (AUTO) 3.1 /CMM (1.8-8.9); PLATELET COUNT (AUTO) 143 /CMM (150-450); RED BLOOD CELL COUNT(AUTO) 3.17 MIL/uL (4.5-6.0)
[2019-07-19] MEDS: ALBUTEROL HALF STRENGTH 1.25 MG/3 ML VIAL.NEB NEB SCH ×3 (07:22→19:52)
--- NOTE | 2019-07-19 07:30 | NUR ---
RN NOTE: RECEIVED PT ALERT AND ORIENTED, NO RESPIRATORY DISTRESS NOTED. DENIES ANY PAIN OR DISCOMFORT. HOB ELEVATED. EUSEBIO MIDLINE IN PLACE. COOMBS CATHETER IN PLACE AND PATENT. PT COMFORTABLE. CALL LIGHT WITHIN REACH
[2019-07-19] MEDS: ASPIRIN EC 81 MG TABLET.DR PO SCH (08:16)
[2019-07-19] MEDS: GLIMEPIRIDE 4 MG TABLET PO SCH ×2 (08:16→17:00)
[2019-07-19] MEDS: GABAPENTIN 300 MG CAPSULE PO SCH ×3 (08:16→16:59)
[2019-07-19] MEDS: LACTOBACILLUS RHAMNOSUS GG 1 EACH CAP.SPRINK PO SCH ×2 (08:16→16:59)
[2019-07-19] MEDS: TAMSULOSIN 0.4 MG CAP.SR.24H PO SCH (08:16)
[2019-07-19] MEDS: METOPROLOL TARTRATE 50 MG TABLET PO SCH ×2 (08:17→16:55)
[2019-07-19] MEDS: FLUOXETINE HCL 20 MG CAPSULE PO SCH (08:18)
[2019-07-19] MEDS: FLUTICASONE PROPIONATE 16 GM BOTTLE NS SCH (08:19)
[2019-07-19] MEDS: BLOOD SUGAR DIAGNOSTIC 1 EACH STRIP VI SCH ×4 (08:19→21:53)
[2019-07-19] MEDS: INSULIN REGULAR, HUMAN 100 UNIT/ML 3 ML VIAL SQ PRN ×4 (08:21→22:00)
[2019-07-19] MEDS: Z GUARD REMEDY 2 OZ OINT TP SCH ×2 (08:25→21:54)
[2019-07-19] MEDS: ACETAMINOPHEN 325 MG TABLET PO PRN (08:32)
[2019-07-19] MEDS ORDERED: FUROSEMIDE 40 MG/4 ML VIAL IV ONE (09:00)
[2019-07-19] MEDS: FUROSEMIDE 40 MG/4 ML VIAL IV SCH (17:01)
--- NOTE | 2019-07-19 19:52 | NUR ---
PT PLACED ON NOCTURNAL BIPAP PER MD'S ORDER. BREATHING TX GIVEN, NO ADVERSE REACTION NOTED. NO RESPIRATORY DISTRESS NOTED AT THIS TIME. WILL CONTINUE TO MONITOR T/O SHIFT.
[2019-07-19] MEDS: LATANOPROST EYE DROP 0.005% 2.5 ML BOTTLE OP SCH (21:53)
[2019-07-19] MEDS: ENOXAPARIN SODIUM 40 MG/0.4 ML DISP.SYRIN SQ SCH (21:54)
[2019-07-19] MEDS: INSULIN GLARGINE, 100 UNIT/ML CARTRIDGE SQ SCH (21:59)
[2019-07-20] VITALS: BP 110/57
[2019-07-20 04:00] VITALS: BP 142/69
[2019-07-20] MEDS: NITROGLYCERIN 30 GM TUBE TP SCH ×5 (06:27→23:08)
[2019-07-20] MEDS: ALBUTEROL HALF STRENGTH 1.25 MG/3 ML VIAL.NEB NEB SCH ×3 (07:37→20:02)
[2019-07-20 07:57] LABS: CREATININE 1.5 mg/dL (0.6-1.3); POTASSIUM 3.8 mmol/L (3.5-5.1)
--- NOTE | 2019-07-20 07:59 | NUR ---
FANY RN NOTES RECEIVED PATIENT ON BED, SITTING COMFORTABLE, A/O X3 , ON 3 LPM N/C, NO SOB NOTED, SR WITH PAC AND PVC. NOTED EDEMA BOTH LOWER EXTREMITIES. IV SITE ON RT UPPER ARM AND RIGHT AC 18G FLUSHED WELL AND INTACT, F/C WITH YELLOW URINE, BED IN LOW POSITION, CALL LIGHT WITHIN REACH
[2019-07-20 08:00] VITALS: BP 159/73
[2019-07-20] MEDS: LACTOBACILLUS RHAMNOSUS GG 1 EACH CAP.SPRINK PO SCH ×2 (08:20→16:11)
[2019-07-20] MEDS: TAMSULOSIN 0.4 MG CAP.SR.24H PO SCH (08:21)
[2019-07-20] MEDS: METOPROLOL TARTRATE 50 MG TABLET PO SCH ×2 (08:21→16:12)
[2019-07-20] MEDS: FLUOXETINE HCL 20 MG CAPSULE PO SCH (08:21)
[2019-07-20] MEDS: GABAPENTIN 300 MG CAPSULE PO SCH ×3 (08:21→16:11)
[2019-07-20] MEDS: GLIMEPIRIDE 4 MG TABLET PO SCH ×2 (08:21→16:11)
[2019-07-20] MEDS: FUROSEMIDE 40 MG/4 ML VIAL IV SCH (08:22)
[2019-07-20] MEDS: FLUTICASONE PROPIONATE 16 GM BOTTLE NS SCH (08:22)
[2019-07-20] MEDS: INSULIN REGULAR, HUMAN 100 UNIT/ML 3 ML VIAL SQ PRN ×3 (08:23→17:46)
[2019-07-20] MEDS: Z GUARD REMEDY 2 OZ OINT TP SCH ×2 (08:26→21:45)
[2019-07-20] MEDS: BLOOD SUGAR DIAGNOSTIC 1 EACH STRIP VI SCH ×4 (08:27→21:46)
[2019-07-20] MEDS: ASPIRIN EC 81 MG TABLET.DR PO SCH (10:37)
[2019-07-20 12:00] VITALS: BP_SYST 109; BP_SYST 139; BP_DIAS 67; BP_DIAS 75
--- NOTE | 2019-07-20 12:17 | NUR ---
FNAY RN NOTE SEEN BY DR VENEGAS WITH NEW ORDER GIVEN, KEEP CLEAN DRY, WILL CONT TO MONITOR CLOSELY
--- NOTE | 2019-07-20 15:27 | NUR ---
FANY RN NOTE ALL NEEDS ATTENDED , NO SOB NOTED, NOT IN DISTRESS
[2019-07-20 16:00] VITALS: BP 146/64
[2019-07-20] MEDS: FUROSEMIDE 40 MG TABLET PO SCH (16:11)
--- NOTE | 2019-07-20 18:43 | NUR ---
FANY RN NOTES PATIENT REMAIN STABLE ON BED, NO IN DISTRESS, NO SIGNS OF DISTRESS, NO SIGNS OF ASPIRATION. HOB UP, FED WELL , BED LOCK ON LOW POSITION. F/C IN PLACE. CALL LIGHT WITHIN REACH
--- NOTE | 2019-07-20 19:32 | NUR ---
FANY RN NOTES RECEIVED PATIENT IN BED WATCHING TV A/O X3 , ON 3 LPM N/C 02 SAT 94%, NO SOB, DISTRESS NOTED, SR WITH PVC 67 NOTED EDEMA BOTH LOWER EXTREMITIES, SAFETY MEASURES IN PLACE. CALL LIGHT WITHIN REACH. WILL CONT MONITOR
[2019-07-20 20:00] VITALS: BP 147/68
[2019-07-20] MEDS: ENOXAPARIN SODIUM 40 MG/0.4 ML DISP.SYRIN SQ SCH (21:45)
[2019-07-20] MEDS: LATANOPROST EYE DROP 0.005% 2.5 ML BOTTLE OP SCH (21:46)
[2019-07-20] MEDS: INSULIN GLARGINE, 100 UNIT/ML CARTRIDGE SQ SCH (21:56)
[2019-07-20] MEDS: *INSULIN REGULAR(HUMULIN R)HUM 100 UNIT/ML VIAL SQ PRN (21:57)
[2019-07-21] VITALS (7 sets, daily range): BP systolic 136–153; BP diastolic 63–90
--- NOTE | 2019-07-21 02:43 | NUR ---
PT NOW ON BIPAP. NO S/S OF DISTRESS NOTED Addendum: 07/21/19 at 0244 by AJIT MARTÍNEZ RN TIME AT 2019 07/20/2019
[2019-07-21] MEDS: NITROGLYCERIN 30 GM TUBE TP SCH ×3 (05:03→17:54)
--- NOTE | 2019-07-21 06:19 | NUR ---
FANY RN CLOSING PT ASLEEP AND EASILY AWAKEN, NO S/S OF DISTRESS, STABLE. PT STILL ON NOC BIPAP 02 SAT AT 98%. NEEDS ATTENDED AND ANTICIPATED. KEPT CLEAN, DRY AND COMFORTABLE. AM CARE RENDERED. SAFETY MEASURES AT ALL TIMES. WILL ENDORSE TO NEXT SHIFT. NO C/O OF PAIN AT THIS TIME Addendum: 07/21/19 at 0640 by AJIT MARTÍNEZ RN ON CARDIAC MONITORING SR WITH PVC 68 HR
[2019-07-21 06:38] LABS: BASOPHILS % (AUTO) 0.8 % (0.0-2.0); EOSINOPHILS % (AUTO) 5.4 % (0.0-6.0); HEMATOCRIT 30 % (39-51); HEMOGLOBIN 9.7 g/dL (13.5-17.5); LYMPHOCYTES # (AUTO) 1.3 /CMM (0.8-4.8); LYMPHOCYTES % (AUTO) 22.2 % (20.0-44.0); MEAN CORPUSCULAR HGB CONC 32 g/dl (31.0-36.0); MEAN CORPUSCULAR VOLUME 92 fL (80-96); MONOCYTES # (AUTO) 0.7 /CMM (0.1-1.30); MONOCYTES % (AUTO) 12.2 % (2.0-12.0); NEUTROPHILS # (AUTO) 3.4 /CMM (1.8-8.9); NEUTROPHILS % (AUTO) 59.4 % (43.0-81.0); PLATELET COUNT (AUTO) 164 /CMM (150-450); RED BLOOD CELL COUNT(AUTO) 3.27 MIL/uL (4.5-6.0); WHITE BLOOD COUNT (AUTO) 5.8 K/uL (4.3-11.0)
[2019-07-21] MEDS: ALBUTEROL HALF STRENGTH 1.25 MG/3 ML VIAL.NEB NEB SCH ×3 (06:55→19:59)
[2019-07-21 07:01] LABS: CALCIUM, SERUM 8.9 mg/dL (8.5-10.1); CREATININE 1.7 mg/dL (0.6-1.3); MAGNESIUM 1.8 mg/dL (1.8-2.4)
--- NOTE | 2019-07-21 07:15 | NUR ---
RN INITIAL RECEIVED BEDSIDE REPORT. PATIENT ASLEEP ON NOCTURNAL BIPAP. SATING WELL AT 99%. AROUSABLE TO NAME AND TOUCH. ALERT AND ORIENTED X4. ON TELE MONITOR, SR. HAS COOMBS CATH WITH CLEAR AND YELLOW URINE. HAS A RIGHT UA MIDLINE AND RIGHT AC #18, SL. AWAITING FOR SNF PLACEMENT. BED LOCKED AND IN LOWEST POSITION. CALL LIGHT WITHIN REACH. WILL CONTINUE TO MONITOR
[2019-07-21] MEDS: BLOOD SUGAR DIAGNOSTIC 1 EACH STRIP VI SCH ×4 (08:05→22:05)
[2019-07-21] MEDS: TAMSULOSIN 0.4 MG CAP.SR.24H PO SCH (08:06)
[2019-07-21] MEDS: FUROSEMIDE 40 MG TABLET PO SCH ×2 (08:06→16:12)
[2019-07-21] MEDS: GABAPENTIN 300 MG CAPSULE PO SCH ×3 (08:06→16:12)
[2019-07-21] MEDS: FLUOXETINE HCL 20 MG CAPSULE PO SCH (08:06)
[2019-07-21] MEDS: ASPIRIN EC 81 MG TABLET.DR PO SCH (08:06)
[2019-07-21] MEDS: GLIMEPIRIDE 4 MG TABLET PO SCH ×2 (08:06→16:12)
[2019-07-21] MEDS: LACTOBACILLUS RHAMNOSUS GG 1 EACH CAP.SPRINK PO SCH ×2 (08:06→16:12)
[2019-07-21] MEDS: METOPROLOL TARTRATE 50 MG TABLET PO SCH ×3 (08:06→16:12)
[2019-07-21] MEDS: FLUTICASONE PROPIONATE 16 GM BOTTLE NS SCH (08:07)
[2019-07-21] MEDS: INSULIN REGULAR, HUMAN 100 UNIT/ML 3 ML VIAL SQ PRN ×4 (08:10→22:01)
[2019-07-21] MEDS: Z GUARD REMEDY 2 OZ OINT TP SCH ×2 (08:15→21:00)
[2019-07-21] MEDS: ACETAMINOPHEN 325 MG TABLET PO PRN (11:42)
--- NOTE | 2019-07-21 18:49 | NUR ---
RN CLOSING NOTE PATIENT AWAKE, ALL MEDS GIVEN. ALL NEEDS MET. REPOSITIONED PER PROTOCOL. ON 3L, NC. NO SOB NOTED. ON TELE MONITOR, SR. EUSEBIO MIDLINE AND R AC #18, SL. ON NOCTURNAL BIPAP. INSULIN COVERAGE GIVEN. PENDING SNF PLACEMENT AND VILLAREAL EVAL. BED LOCKED AND IN LOWEST POSITION. CALL LIGHT WITHIN REACH. WILL ENDORSE TO NOC SHIFT
--- NOTE | 2019-07-21 19:24 | NUR ---
FANY RN NOTE PATIENT IN BED A/O X 4. ON 3L NC. PATIENT DENIES SOB/CHEST PAIN. PATIENT TOLERATING 3L. PATIENT IN BED SITTING UP WATCING TV. PATIENT DENIES DISCOMFORT OR PAIN. PATIENT HR SR WITH PAC. PATIENT IV PATENT AND INTACT NO S/S OF INFECTION OR INFILTRATION. PATIENT COOMBS CATH DRAINING TO GRAVITY. DISCUSSED WITH PATIENT POC AND GOALS FOR SHIFT. PATIENT VERBALIZES UNDERSTANDING. CALL LIGHT INSTRUCTIONS GIVEN. PATIENT VERBALIZES UNDERSTANDING. CALL LIGHT WITHIN HAND. SAFETY PRECAUTIONS IN PLACE. BED IN LOWEST LOCKED POSITION. RN WILL CONTINUE TO MONITOR FOR CHANGES.
--- NOTE | 2019-07-21 20:02 | NUR ---
Received pt on 3 L NC, upon initial assessment noticed break down of skin at the bridge of the nose from BIPAP mask, RN notified will use alternative mask which goes under the nose.
[2019-07-21] MEDS: ENOXAPARIN SODIUM 40 MG/0.4 ML DISP.SYRIN SQ SCH (22:00)
[2019-07-21] MEDS: INSULIN GLARGINE, 100 UNIT/ML CARTRIDGE SQ SCH (22:01)
[2019-07-21] MEDS: LATANOPROST EYE DROP 0.005% 2.5 ML BOTTLE OP SCH (22:05)
[2019-07-22] VITALS: BP 142/63
[2019-07-22] MEDS: NITROGLYCERIN 30 GM TUBE TP SCH ×4 (00:27→17:33)
[2019-07-22 04:00] VITALS: BP 146/61
--- NOTE | 2019-07-22 07:10 | NUR ---
RN INITIAL RECEIVED BEDSIDE REPORT. PATIENT ASLEEP ON NOCTURNAL BIPAP. SATING WELL AT 98%. AROUSABLE TO NAME AND TOUCH. ALERT AND ORIENTED X4. ON TELE MONITOR, SR WITH OCC PVC/PAC. HAS COOMBS CATH WITH CLEAR AND YELLOW URINE. HAS A RIGHT UA MIDLINE AND RIGHT AC #18, SL. AWAITING FOR SNF PLACEMENT. BED LOCKED AND IN LOWEST POSITION. CALL LIGHT WITHIN REACH. WILL CONTINUE TO MONITOR
--- NOTE | 2019-07-22 07:13 | NUR ---
FANY RN NOTE PATIENT TOLERATED THE NIGHT WELL. CARE GIVEN ORDERED. ENDORSED POC TO MIHIR SALVADOR FOR [facility]NASA.
[2019-07-22 07:19] LABS: BASOPHILS % (AUTO) 0.7 % (0.0-2.0); EOSINOPHILS % (AUTO) 6.2 % (0.0-6.0); HEMATOCRIT 30 % (39-51); HEMOGLOBIN 9.5 g/dL (13.5-17.5); LYMPHOCYTES # (AUTO) 1.3 /CMM (0.8-4.8); LYMPHOCYTES % (AUTO) 24.4 % (20.0-44.0); MEAN CORPUSCULAR HGB CONC 32 g/dl (31.0-36.0); MEAN CORPUSCULAR VOLUME 92 fL (80-96); MONOCYTES # (AUTO) 0.7 /CMM (0.1-1.30); MONOCYTES % (AUTO) 12.4 % (2.0-12.0); NEUTROPHILS # (AUTO) 3.1 /CMM (1.8-8.9); NEUTROPHILS % (AUTO) 56.3 % (43.0-81.0); PLATELET COUNT (AUTO) 172 /CMM (150-450); RED BLOOD CELL COUNT(AUTO) 3.22 MIL/uL (4.5-6.0); WHITE BLOOD COUNT (AUTO) 5.5 K/uL (4.3-11.0)
[2019-07-22] MEDS: BLOOD SUGAR DIAGNOSTIC 1 EACH STRIP VI SCH ×4 (07:39→21:55)
[2019-07-22] MEDS: ALBUTEROL HALF STRENGTH 1.25 MG/3 ML VIAL.NEB NEB SCH ×3 (07:43→19:04)
[2019-07-22 07:50] LABS: CALCIUM, SERUM 9.3 mg/dL (8.5-10.1); CREATININE 1.6 mg/dL (0.6-1.3); POTASSIUM 3.9 mmol/L (3.5-5.1)
[2019-07-22 08:00] VITALS: BP 128/56
[2019-07-22] MEDS: ASPIRIN EC 81 MG TABLET.DR PO SCH (08:41)
[2019-07-22] MEDS: GLIMEPIRIDE 4 MG TABLET PO SCH ×2 (08:42→16:25)
[2019-07-22] MEDS: Z GUARD REMEDY 2 OZ OINT TP SCH ×2 (08:42→20:09)
[2019-07-22] MEDS: LACTOBACILLUS RHAMNOSUS GG 1 EACH CAP.SPRINK PO SCH ×2 (08:42→16:26)
[2019-07-22] MEDS: METOPROLOL TARTRATE 50 MG TABLET PO SCH ×2 (08:42→16:26)
[2019-07-22] MEDS: FUROSEMIDE 40 MG TABLET PO SCH (08:42)
[2019-07-22] MEDS: FLUOXETINE HCL 20 MG CAPSULE PO SCH (08:42)
[2019-07-22] MEDS: GABAPENTIN 300 MG CAPSULE PO SCH ×3 (08:42→16:26)
[2019-07-22] MEDS: TAMSULOSIN 0.4 MG CAP.SR.24H PO SCH (08:42)
[2019-07-22] MEDS: FLUTICASONE PROPIONATE 16 GM BOTTLE NS SCH (08:43)
[2019-07-22] MEDS: INSULIN REGULAR, HUMAN 100 UNIT/ML 3 ML VIAL SQ PRN ×2 (11:33→17:34)
[2019-07-22 12:00] VITALS: BP 152/68
[2019-07-22 16:00] VITALS: BP 148/69
--- NOTE | 2019-07-22 16:24 | NUR ---
RN NOTE PER DR CONDE, [facility] IS ACCEPTING THE PATIENT. ASKED DR VENEGAS FOR A DC ORDER. PER , NO DC TODAY, HE STILL NEEDS TO TALK TO THE DPOA. NC MACHINIST AND DR CONDE AWARE. PER DR CONDE, THATS OK JUST LET [facility] AWARE
--- NOTE | 2019-07-22 18:43 | NUR ---
RN CLOSING NOTE PATIENT AWAKE, ALL MEDS GIVEN. ALL NEEDS MET. REPOSITIONED PER PROTOCOL. ON 3L, NC. NO SOB NOTED. ON TELE MONITOR, SR. EUSEBIO MORALES, SL. ON NOCTURNAL BIPAP. INSULIN COVERAGE GIVEN. PENDING VILLAREAL PLACEMENT. PER DR VENEGAS, HE WILL TALK TO THE DPOA FIRST BEFORE DISCHARGING PATIENT, BED LOCKED AND IN LOWEST POSITION. CALL LIGHT WITHIN REACH. WILL ENDORSE TO NOC SHIFT
[2019-07-22 20:00] VITALS: BP 149/63
--- NOTE | 2019-07-22 20:00 | NUR ---
FANY RN NOTES RECEIVED PATIENT IN BED A/O X3 , ON 3 LPM N/C 02 SAT 98%, NO SOB, DISTRESS NOTED, SR WITH 67 HR .V/S STABLE AFEBRILE , ALL NEEDS ATTENDED TOO CALL LIGHT WITHIN REACH , DUE MEDS GIVEN ORDERED, KEPT PTS CLEAN DRY AND COMFORTABLE ,NOTED EDEMA BOTH LOWER EXTREMITIES, SAFETY MEASURES IN PLACE. CALL LIGHT WITHIN REACH. WILL CONT MONITOR.
[2019-07-22] MEDS: ENOXAPARIN SODIUM 40 MG/0.4 ML DISP.SYRIN SQ SCH (20:10)
[2019-07-22] MEDS: LATANOPROST EYE DROP 0.005% 2.5 ML BOTTLE OP SCH (21:36)
[2019-07-22] MEDS: INSULIN GLARGINE, 100 UNIT/ML CARTRIDGE SQ SCH (21:47)
[2019-07-22] MEDS: *INSULIN REGULAR(HUMULIN R)HUM 100 UNIT/ML VIAL SQ PRN (21:50)
--- NOTE | 2019-07-22 22:00 | NUR ---
FANY RN NOTES BLOOD SUGAR FOR 10PM IS 185 MG/DL 65 UNITS OF LANTUS GIVEN ORDERED AND 3 UNITS OF REGULAR INSULIN GIVEN PER SLIDING SCALE , PTS ON PO DIET . OFFERED MILK , WILL CHECK BLOOD SUGAR AGAIN AT 730AM.
--- NOTE | 2019-07-22 23:00 | NUR ---
FANY RN NOTES RT AT BEDSIDE , PLACE PTS ON BIPAP NOC.WELL TOLERATED , NO SOB NO DISTRESS NOTED.
[2019-07-23] VITALS (8 sets, daily range): BP systolic 115–166; BP diastolic 63–76
[2019-07-23] MEDS: NITROGLYCERIN 30 GM TUBE TP SCH ×5 (00:18→23:57)
--- NOTE | 2019-07-23 04:00 | NUR ---
FANY RN NOTES PTS REFUSE MORNING CARE EXPLAINED RISK AND BENEFITS , PTS IS A/O X4 VERBALIZED UNDERSTANDING.
--- NOTE | 2019-07-23 06:00 | NUR ---
FANY RN NOTES RT AT BEDSIDE PTS WAS PLACE BACK TO 3 LITERS OF O2 VIA NC SATING 97%, NO SOB NO DISTRESS NOTED ,WILL ENDORSE TO RN DAY SHIFT FOR CONTINUITY OF CARE.
[2019-07-23 06:33] LABS: CALCIUM, SERUM 9.1 mg/dL (8.5-10.1); CREATININE 1.7 mg/dL (0.6-1.3); MAGNESIUM 1.9 mg/dL (1.8-2.4); POTASSIUM 3.8 mmol/L (3.5-5.1)
[2019-07-23 06:40] LABS: BASOPHILS % (AUTO) 0.7 % (0.0-2.0); EOSINOPHILS % (AUTO) 5.7 % (0.0-6.0); HEMATOCRIT 30 % (39-51); HEMOGLOBIN 9.8 g/dL (13.5-17.5); LYMPHOCYTES # (AUTO) 1.1 /CMM (0.8-4.8); LYMPHOCYTES % (AUTO) 21.3 % (20.0-44.0); MEAN CORPUSCULAR HGB CONC 33 g/dl (31.0-36.0); MEAN CORPUSCULAR VOLUME 92 fL (80-96); MONOCYTES # (AUTO) 0.6 /CMM (0.1-1.30); MONOCYTES % (AUTO) 11.6 % (2.0-12.0); NEUTROPHILS # (AUTO) 3.2 /CMM (1.8-8.9); NEUTROPHILS % (AUTO) 60.7 % (43.0-81.0); PLATELET COUNT (AUTO) 175 /CMM (150-450); RED BLOOD CELL COUNT(AUTO) 3.29 MIL/uL (4.5-6.0); WHITE BLOOD COUNT (AUTO) 5.3 K/uL (4.3-11.0)
--- NOTE | 2019-07-23 07:43 | NUR ---
RN NOTE RECIEVED PT IN BED, ALERT AND ORIENTED X 4, ON NASAL CANULA ON 3l PER MINUTE, NO SOB NOTED, ON TELE MONITOR SINUS RHTYHM, WITH COOMBS CATHETER, PATENT WITH YELLOW COLORED URINE, RIGHT UPPER MID LINE IN PLACE AND FLUSHING WELL, ACCUCHECK CHECKED WITH BLOOD SUGAR 166, WILL GIVE COVERAGE, PLAN OF CARE DISCUSSED, WITH COMPLAINT OF HEADACHE 02/06. TYLENOL WILL BE GIVEN. PLAN OF CARE DISCUSSED. BED LOCKED IN LOW POSITION FOR SAFETY, CALL LIGHT IN REACH, REPOSITIONED PATIENT, KEPT CLEAN AND DRY ,WILL CONTINUE TO MONITOR
[2019-07-23] MEDS: ACETAMINOPHEN 325 MG TABLET PO PRN (07:52)
[2019-07-23] MEDS: ALBUTEROL HALF STRENGTH 1.25 MG/3 ML VIAL.NEB NEB SCH ×3 (08:18→20:18)
[2019-07-23] MEDS: BLOOD SUGAR DIAGNOSTIC 1 EACH STRIP VI SCH ×4 (08:23→21:22)
[2019-07-23] MEDS: FLUTICASONE PROPIONATE 16 GM BOTTLE NS SCH (08:26)
[2019-07-23] MEDS: LACTOBACILLUS RHAMNOSUS GG 1 EACH CAP.SPRINK PO SCH ×2 (08:27→16:11)
[2019-07-23] MEDS: ASPIRIN EC 81 MG TABLET.DR PO SCH (08:27)
[2019-07-23] MEDS: FLUOXETINE HCL 20 MG CAPSULE PO SCH (08:27)
[2019-07-23] MEDS: METOPROLOL TARTRATE 50 MG TABLET PO SCH ×2 (08:27→16:11)
[2019-07-23] MEDS: GABAPENTIN 300 MG CAPSULE PO SCH ×3 (08:27→16:11)
[2019-07-23] MEDS: FUROSEMIDE 40 MG TABLET PO SCH (08:27)
[2019-07-23] MEDS: TAMSULOSIN 0.4 MG CAP.SR.24H PO SCH (08:28)
[2019-07-23] MEDS: GLIMEPIRIDE 4 MG TABLET PO SCH ×2 (08:28→16:11)
[2019-07-23] MEDS: Z GUARD REMEDY 2 OZ OINT TP SCH ×2 (08:29→21:19)
[2019-07-23] MEDS: INSULIN REGULAR, HUMAN 100 UNIT/ML 3 ML VIAL SQ PRN ×3 (08:29→17:02)
[2019-07-23] MEDS ORDERED: MORPHINE SULFATE INJ 2 MG/ML DISP.SYRIN IV ONE (10:30)
--- NOTE | 2019-07-23 10:32 | NUR ---
RN NOTE PATIENT COMPLAINING OF SEVERE STOMACH PAIN. PT RECENTLY GIVEN MORPHINE 1MG IV BUT STATES IT IS INEFFECTIVE. SPOKE TO RICHA BISWAS WITH ORDER TO GIVE MORPHINE 2MG IV ONE TIME DOSE ONLY FOR NOW. ORDER NOTED AND CARRIED OUT. Addendum: 07/23/19 at 1150 by CAMRYN BRITO RN WRONG ENTRY WRONG CHART
--- NOTE | 2019-07-23 11:53 | NUR ---
FIRE RANGER NOTE SPOKE WITH DR VENEGAS NOTIFIED THAT BP AT 1200 163/76 STATED THAT WILL CHECK IT NOW ,AWARE THAT [id number] ON NITRO PATCH
--- NOTE | 2019-07-23 14:27 | NUR ---
telegraph office telephone clerk note on breathing tx as ordered
--- NOTE | 2019-07-23 18:38 | NUR ---
RN NOTE PT SLEEPING IN BED WITH HEAD OF BED ELEVATED WITHOUT SIGNS OF DISTRESS. NGT RESIDUAL 50CC. WILL MAINTAIN FEEDING AT 55ML/HOUR. Addendum: 07/23/19 at 1840 by NOÉ ISLAS RN ERROR, WRONG PATIENT NOTE
--- NOTE | 2019-07-23 18:40 | NUR ---
RN NOTE PATIENT IN BED WITH HEAD OF BED ELEVATED WATCHING TV, NO SIGNS OF DISTRESS, CURRENTLY ON 3L VIA NASAL CANNULA.
--- NOTE | 2019-07-23 20:35 | NUR ---
DOG DAYCARE PROVIDER OPENING NOTES RECEIVED REPORT FROM CAMRYN SALVADOR. PATIENT A/A/O X4, ABLE TO VERBALIZE NEEDS. BREATHING EVEN & UNLABORED, TOLERATING O2 @3LPM VIA NC. DENIES ANY SOB OR DIFFICULTY BREATHING. ON TELE W/ SINUS RHYTHM & INVERTED T WAVE, HR 60S. RIGHT UPPER ARM MIDLINE INTACT & PATENT W/ DRESSING CDI, SALINE LOCKED. COOMBS CATH DRAINING YELLOW URINE. DENIES ANY PAIN OR DISCOMFORT @ THIS TIME. SAFETY MEASURES IN PLACE W/ SIDE RAILS UP & BED ALARM ON. WILL CONTINUE TO MONITOR.
[2019-07-23] MEDS: LATANOPROST EYE DROP 0.005% 2.5 ML BOTTLE OP SCH (21:19)
[2019-07-23] MEDS: ENOXAPARIN SODIUM 40 MG/0.4 ML DISP.SYRIN SQ SCH (21:20)
[2019-07-23] MEDS: INSULIN GLARGINE, 100 UNIT/ML CARTRIDGE SQ SCH (21:21)
[2019-07-23] MEDS: *INSULIN REGULAR(HUMULIN R)HUM 100 UNIT/ML VIAL SQ PRN (21:22)
[2019-07-24] VITALS: BP 139/70
[2019-07-24 04:00] VITALS: BP 158/73
[2019-07-24] MEDS: NITROGLYCERIN 30 GM TUBE TP SCH ×3 (06:21→17:56)
[2019-07-24 06:55] LABS: CALCIUM, SERUM 9.1 mg/dL (8.5-10.1); CREATININE 1.6 mg/dL (0.6-1.3); POTASSIUM 4.1 mmol/L (3.5-5.1)
[2019-07-24] MEDS: ALBUTEROL HALF STRENGTH 1.25 MG/3 ML VIAL.NEB NEB SCH ×3 (07:57→19:47)
[2019-07-24 08:00] VITALS: BP 147/67
[2019-07-24] MEDS: BLOOD SUGAR DIAGNOSTIC 1 EACH STRIP VI SCH ×4 (08:09→21:36)
[2019-07-24] MEDS: TAMSULOSIN 0.4 MG CAP.SR.24H PO SCH (08:39)
[2019-07-24] MEDS: ACETAMINOPHEN 325 MG TABLET PO PRN (08:41)
[2019-07-24] MEDS: FUROSEMIDE 40 MG TABLET PO SCH (08:42)
[2019-07-24] MEDS: LACTOBACILLUS RHAMNOSUS GG 1 EACH CAP.SPRINK PO SCH (08:42)
[2019-07-24] MEDS: GABAPENTIN 300 MG CAPSULE PO SCH ×3 (08:42→17:55)
[2019-07-24] MEDS: GLIMEPIRIDE 4 MG TABLET PO SCH ×2 (08:43→17:55)
[2019-07-24] MEDS: FLUOXETINE HCL 20 MG CAPSULE PO SCH (08:43)
[2019-07-24] MEDS: METOPROLOL TARTRATE 50 MG TABLET PO SCH ×2 (08:45→17:56)
[2019-07-24] MEDS: Z GUARD REMEDY 2 OZ OINT TP SCH ×2 (09:46→21:04)
[2019-07-24] MEDS: ASPIRIN EC 81 MG TABLET.DR PO SCH (09:46)
[2019-07-24 12:00] VITALS: BP 150/69
[2019-07-24] MEDS: FLUTICASONE PROPIONATE 16 GM BOTTLE NS SCH (12:47)
[2019-07-24] MEDS: INSULIN REGULAR, HUMAN 100 UNIT/ML 3 ML VIAL SQ PRN ×2 (12:50→18:01)
[2019-07-24 16:00] VITALS: BP 152/77
--- NOTE | 2019-07-24 18:25 | NUR ---
CUTTER ALUMINUM SHEET OPENING NOTES\ RECEIVED REPORT AT BEDSIDE. PATIENT A/A/O X4, ABLE TO VERBALIZE NEEDS. BREATHING EVEN & UNLABORED, TOLERATING O2 @3LPM VIA NC. DENIES ANY SOB OR DIFFICULTY BREATHING. ON TELE W/ SINUS RHYTHM & PAC, HR 60S. RIGHT UPPER ARM MIDLINE INTACT & PATENT W/ DRESSING CDI, SALINE LOCKED. COOMBS CATH DRAINING YELLOW URINE. SAFETY MEASURES IN PLACE W/ SIDE RAILS UP & BED ALARM ON. BED LOW NAD LOCKED. CALL LIGHT WITHIN REACH. WILL CONTINUE TO MONITOR.
--- NOTE | 2019-07-24 19:00 | NUR ---
SILK SCREEN LAYOUT DRAFTER OPEN NOTES RECEIVED PATIENT IN BED AWAKE ALERT AND ORIENTED X 3-4, ON O2 VIA NC ON 3L , RESPIRATIONS EVEN AND UNLABORED WITH EQUAL RISE AND FALL OF CHEST,NO SOB PRESENT. DENIES ANY PAIN OR DISCOMFORT AT THIS TIME, ON REFRIGERATION MANAGER SB 57. NO DISTRESS PRESENT, COOMBS CATHETER INTACT AND DRAINING WELL, NOTED URINE CLEAR YELLOW, MID LINE TO RIGHT UPPER ARM , DRESSING REMAINS CLEAN, DRY AND INTACT, WORKING PROPERLY, NO REDNESS, NO INFILTRATION PRESENT, ORIENTED TO STAFF AND CALL LIGHT AND KEPT WITHIN REACH, SAFETY PRECAUTIONS IN PLACE ,LOW BED AND LOCKED, BED ALARM IN PLACE, DISCUSSED PLAN OF CARE, ALL NEEDS ATTENDED AT THIS TIME, WILL CONTINUE TO MONITOR AND ATTEND TO NEEDS.
--- NOTE | 2019-07-24 19:32 | NUR ---
RN CLOSING NOTE NO SIGNIFICANT CHANGE DURING THE SHIFT. VIKTOR LIGHT WITHIN REACH. BED LOW AND LOCKED. SIDE RAILS UP X3. ENDORSED TO PM NURSE FOR MANASA.
[2019-07-24 20:00] VITALS: BP 117/57
[2019-07-24] MEDS: LATANOPROST EYE DROP 0.005% 2.5 ML BOTTLE OP SCH (21:05)
[2019-07-24] MEDS: ENOXAPARIN SODIUM 40 MG/0.4 ML DISP.SYRIN SQ SCH (21:07)
[2019-07-24] MEDS: INSULIN GLARGINE, 100 UNIT/ML CARTRIDGE SQ SCH (21:42)
[2019-07-24] MEDS: *INSULIN REGULAR(HUMULIN R)HUM 100 UNIT/ML VIAL SQ PRN (21:48)
[2019-07-25] VITALS (7 sets, daily range): BP systolic 110–151; BP diastolic 49–64
[2019-07-25] MEDS: NITROGLYCERIN 30 GM TUBE TP SCH ×6 (01:22→23:29)
--- NOTE | 2019-07-25 05:56 | NUR ---
RT NOTE Pt rec'd on 4lnc. Pt alert and awake. Pt placed on bipap @ 0007 per md orders. No resp distress or sob noted. No redness or scarring on pt's face. Alarms are set and audible. Bipap plugged into red outlet. Ambu bag bedside. will continue to monitor Addendum: 07/25/19 at 0600 by MARCK JIMÉNEZ RT Amended: Links added.
--- NOTE | 2019-07-25 06:26 | NUR ---
EXTENSION PROFESSOR OPEN NOTES RECEIVED PATIENT IN BED AWAKE ALERT AND ORIENTED X 3-4, ON O2 VIA NC ON 3L , RESPIRATIONS EVEN AND UNLABORED WITH EQUAL RISE AND FALL OF CHEST,NO SOB PRESENT. DENIES ANY PAIN OR DISCOMFORT AT THIS TIME, ON COMMONWEALTH ATTORNEY SB 57. NO DISTRESS PRESENT, COOMBS CATHETER INTACT AND DRAINING WELL, NOTED URINE CLEAR YELLOW, MID LINE TO RIGHT UPPER ARM , DRESSING REMAINS CLEAN, DRY AND INTACT, WORKING PROPERLY, NO REDNESS, NO INFILTRATION PRESENT, ORIENTED TO STAFF AND CALL LIGHT AND KEPT WITHIN REACH, SAFETY PRECAUTIONS IN PLACE ,LOW BED AND LOCKED, BED ALARM IN PLACE, DISCUSSED PLAN OF CARE, ALL NEEDS ATTENDED AT THIS TIME, WILL CONTINUE TO MONITOR AND ATTEND TO NEEDS. Addendum: 07/25/19 at 0626 by MODESTO KHAN RN error disregard notes
--- NOTE | 2019-07-25 06:27 | NUR ---
TAIL WORKER CLOSING NOTES PATIENT IN BED AWAKE ALERT AND ORIENTED X 3-4, ON O2 VIA NC 3L AND NOCTURNAL BIPAP , RESPIRATIONS EVEN AND UNLABORED WITH EQUAL RISE AND FALL OF CHEST,NO SOB PRESENT. DENIES ANY PAIN OR DISCOMFORT AT THIS TIME, ON FREIGHT ADJUSTER SB 59. NO DISTRESS PRESENT, COOMBS CATHETER INTACT AND DRAINING WELL, NOTED URINE CLEAR YELLOW, MID LINE TO RIGHT UPPER ARM , DRESSING REMAINS CLEAN, DRY AND INTACT, WORKING PROPERLY, NO REDNESS, NO INFILTRATION PRESENT, CALL LIGHT KEPT WITHIN REACH, SAFETY PRECAUTIONS IN PLACE ,LOW BED AND LOCKED, BED ALARM IN PLACE, ALL NEEDS ATTENDED AT THIS TIME, WILL CONTINUE TO MONITOR AND ATTEND TO NEEDS AND ENDORSE TO NEXT SHIFT. NO CHANGE OF CONDITION NOTED THROUGHOUT SHIFT.
--- NOTE | 2019-07-25 07:23 | NUR ---
SUPERVISOR ENGINES ROAD OPENING NOTE RECEIVED REPORT FROM NOC SHIFT NURSE. PT ASLEEP IN BED, ON 02 VIA NC 3L/MIN AND NOCTURNAL BIPAP, SATURATING WELL, RESPIRATIONS EVEN AND UNLABORED, NO SIGNS OF RESPIRATORY DISTRESS NOTED. COOMBS CATHETER DRAINING CLEAR YELLOW URINE. SINUS PERRY ON MARK UP DESIGNER HR 57. RIGHT UPPER ARM MIDLINE INTACT,PATENT WITH CLEAN DRESSING. BED IN LOW POSITION, LOCKED, CALL LIGHT WITHIN REACH.
[2019-07-25] MEDS: BLOOD SUGAR DIAGNOSTIC 1 EACH STRIP VI SCH ×4 (07:47→21:12)
[2019-07-25] MEDS: ALBUTEROL HALF STRENGTH 1.25 MG/3 ML VIAL.NEB NEB SCH ×3 (07:48→19:43)
[2019-07-25] MEDS: ASPIRIN EC 81 MG TABLET.DR PO SCH (08:26)
[2019-07-25] MEDS: TAMSULOSIN 0.4 MG CAP.SR.24H PO SCH (08:26)
[2019-07-25] MEDS: METOPROLOL TARTRATE 50 MG TABLET PO SCH ×2 (08:26→16:54)
[2019-07-25] MEDS: Z GUARD REMEDY 2 OZ OINT TP SCH ×2 (08:27→21:16)
[2019-07-25] MEDS: GABAPENTIN 300 MG CAPSULE PO SCH ×3 (08:27→16:54)
[2019-07-25] MEDS: FLUOXETINE HCL 20 MG CAPSULE PO SCH (08:27)
[2019-07-25] MEDS: GLIMEPIRIDE 4 MG TABLET PO SCH ×2 (08:27→16:54)
[2019-07-25] MEDS: FUROSEMIDE 40 MG TABLET PO SCH (08:27)
[2019-07-25] MEDS: FLUTICASONE PROPIONATE 16 GM BOTTLE NS SCH (08:39)
[2019-07-25] MEDS: INSULIN REGULAR, HUMAN 100 UNIT/ML 3 ML VIAL SQ PRN (12:10)
--- NOTE | 2019-07-25 16:54 | NUR ---
HELD METOPROLOL DUE TO HR 54
--- NOTE | 2019-07-25 18:37 | NUR ---
CAM SPECIALIST CLOSING NOTES PATIENT IN BED AWAKE ALERT AND ORIENTED X 3, ON O2 VIA NC 3L, RESPIRATIONS EVEN AND UNLABORED, NO SIGNS OF RESPIRATORY DISTRESS NOTED. COOMBS CATHETER INTACT DRAINING CLEAR YELLOW URINE. MID LINE TO RIGHT UPPER ARM, DRESSING REMAINS CLEAN, DRY AND INTACT, FLUSHING WELL. BED IN LOW POSITION, LOCKED, CALL LIGHT WITHIN REACH. ALL DUE MEDS GIVEN THROUGHOUT SHIFT, PROVIDED SAFETY AND COMFORT. WILL ENDORSE TO NOC SHIFT NURSE.
--- NOTE | 2019-07-25 19:00 | NUR ---
MS RN NOTE RECEIVED PT IN STABLE CONDITION A/O X2-3. NO SIGNS OF SOB OR DISTRESS, NO C/O PAIN OR N/V. COOMBS NOTED WITH ADEQUATE URINE DRAINING. EUSEBIO MIDLINE IN PLACE S/L. ALL CURRENT NEEDS ATTENDED TO. BED LOW, LOCKED, UPPER RAILS UP, AND CALL LIGHT WITHIN REACH. WILL CONT. MONITOR.
--- NOTE | 2019-07-25 20:15 | NUR ---
RT NOTE PT RECEIVED AWAKE/ALERT ON 36% NASAL CANNULA. TX GIVEN, NO ADVERSE REACTIONS NOTED. BIPAP @ BEDSIDE. PT REQUESTS FOR BIPAP @ 2200. NURSE, SLADE ESPINO. NO SOB NOTED AT THIS TIME.
[2019-07-25] MEDS: LATANOPROST EYE DROP 0.005% 2.5 ML BOTTLE OP SCH (21:05)
[2019-07-25] MEDS: ENOXAPARIN SODIUM 40 MG/0.4 ML DISP.SYRIN SQ SCH (21:11)
[2019-07-25] MEDS: INSULIN GLARGINE, 100 UNIT/ML CARTRIDGE SQ SCH (21:11)
--- NOTE | 2019-07-25 21:48 | NUR ---
RT NOTE PT AWAKE. PT REQUESTS TO BE PLACED ON BIPAP @ [address] PT AT THIS TIME. NO SOB NOTED.
[2019-07-26 04:00] VITALS: BP 134/64
[2019-07-26] MEDS: NITROGLYCERIN 30 GM TUBE TP SCH ×3 (05:27→17:53)
--- NOTE | 2019-07-26 06:22 | NUR ---
MS RN NOTE PT REMAINS IN STABLE CONDITION A/O X2-3 CURRENTLY RESTING, NOTED WITH BIPAP ON. NO SIGNS OF SOB OR DISTRESS, NO C/O PAIN OR N/V. COOMBS NOTED WITH ADEQUATE URINE DRAINING. EUSEBIO MIDLINE IN PLACE S/L. ALL CURRENT NEEDS ATTENDED TO. BED LOW, LOCKED, UPPER RAILS UP, AND CALL LIGHT WITHIN REACH. WILL CONT. MONITOR AND ENDORSE TO NEXT SHIFT FOR MANASA.
--- NOTE | 2019-07-26 07:22 | NUR ---
RN OPENING NOTE PT WAS RECEIVED IN BED AT LOWEST AND LOCKED POSITION WITH SIDE RAILS UP X2, A/O 2-3 CURRENTLY ON BIPAP AT NIGHT WHEN ASLEEP BUT TO BE PLACED ON 3L VIA NC WHEN AWAKE, COOMBS IN PLACE DRAINING, PER NIGHT RN PT REFUSED CARE AT NIGHT, MIDLINE PATENT AND INTACT, SAFETY PRECAUTIONS IN PLACE, CALL LIGHT IN REACH, WILL MONITOR ACCORDINGLY
[2019-07-26] MEDS: INSULIN REGULAR, HUMAN 100 UNIT/ML 3 ML VIAL SQ PRN ×3 (08:05→17:50)
[2019-07-26] MEDS: BLOOD SUGAR DIAGNOSTIC 1 EACH STRIP VI SCH ×4 (08:05→21:22)
[2019-07-26] MEDS: ALBUTEROL HALF STRENGTH 1.25 MG/3 ML VIAL.NEB NEB SCH ×3 (08:06→19:47)
--- NOTE | 2019-07-26 08:06 | NUR ---
RN NOTE PT BS WAS NOTED TO BE 162 AT THIS TIME, PT REFUSED INSULIN BECAUSE HE JUST WANTS TO SLEEP AT THIS TIME AND WILL EAT LATER, WILL NON-ADMIN AND MONITOR ACCORDINGLY
[2019-07-26] MEDS: GABAPENTIN 300 MG CAPSULE PO SCH ×3 (08:55→16:20)
[2019-07-26] MEDS: FLUTICASONE PROPIONATE 16 GM BOTTLE NS SCH (08:55)
[2019-07-26] MEDS: TAMSULOSIN 0.4 MG CAP.SR.24H PO SCH (08:56)
[2019-07-26] MEDS: ASPIRIN EC 81 MG TABLET.DR PO SCH (08:56)
[2019-07-26] MEDS: GLIMEPIRIDE 4 MG TABLET PO SCH ×2 (08:56→16:20)
[2019-07-26] MEDS: METOPROLOL TARTRATE 50 MG TABLET PO SCH ×2 (08:57→16:21)
[2019-07-26] MEDS: FUROSEMIDE 40 MG TABLET PO SCH (08:57)
[2019-07-26] MEDS: FLUOXETINE HCL 20 MG CAPSULE PO SCH (08:57)
[2019-07-26] MEDS: Z GUARD REMEDY 2 OZ OINT TP SCH ×2 (08:58→21:20)
[2019-07-26 09:06] LABS: CALCIUM, SERUM 9.3 mg/dL (8.5-10.1); CREATININE 1.6 mg/dL (0.6-1.3); POTASSIUM 4.4 mmol/L (3.5-5.1)
[2019-07-26 12:03] VITALS: BP 137/71
--- NOTE | 2019-07-26 18:16 | NUR ---
RN NOTE PT REFUSED FOR LINEN TO BE CHANGED AND BEDSIDE CARE AT THIS TIME
--- NOTE | 2019-07-26 18:41 | NUR ---
RN CLOSING NOTE PT IN BED AT LOWEST AND LOCKED POSITION WITH SIDE RAILS UP X2, A/O 2-3 ON 3L VIA NC, COOMBS IN PLACE DRAINING, MIDLINE PATENT AND INTACT, SAFETY PRECAUTIONS IN PLACE, CALL LIGHT IN REACH, ALL NEEDS ATTENDED TO, WILL ENDORSE TO NIGHT RN FOR MANASA
--- NOTE | 2019-07-26 19:45 | NUR ---
ms addie initial notes seen pt in bed on sitting position with side rails up, watching tv at this time. pt on 02 at 3 liters via NC , no sob noted at this time. no signs of any acute distress. breathing even and non-labored. denies any pain or any discomfort. pt also with ramon to gravity draining clear yellow output. Educate how to used the call light and encouraged him to use if he needs some help and needs the nurse. kept him warm and comfortable at all times. place cll light at reach. will continue monitoring.
[2019-07-26 20:40] VITALS: BP 117/62
[2019-07-26] MEDS: LATANOPROST EYE DROP 0.005% 2.5 ML BOTTLE OP SCH (21:16)
[2019-07-26] MEDS: ENOXAPARIN SODIUM 40 MG/0.4 ML DISP.SYRIN SQ SCH (21:16)
[2019-07-26] MEDS: INSULIN GLARGINE, 100 UNIT/ML CARTRIDGE SQ SCH (21:34)
[2019-07-26] MEDS: *INSULIN REGULAR(HUMULIN R)HUM 100 UNIT/ML VIAL SQ PRN (21:37)
[2019-07-27] MEDS: NITROGLYCERIN 30 GM TUBE TP SCH ×4 (00:31→17:41)
--- NOTE | 2019-07-27 00:34 | NUR ---
contour band saw operator vertical notes pt resting at this time, nitro patch applied to his chest wall as ordered. BP 141/65 and heart rate 62.will continue monitoring. place call light at reach.
[2019-07-27 04:00] VITALS: BP 144/65
[2019-07-27] MEDS: BLOOD SUGAR DIAGNOSTIC 1 EACH STRIP VI SCH ×4 (06:22→21:34)
[2019-07-27] MEDS: INSULIN REGULAR, HUMAN 100 UNIT/ML 3 ML VIAL SQ PRN ×2 (06:33→12:36)
--- NOTE | 2019-07-27 06:52 | NUR ---
MS DOOR WORKER CLOSING NOTES PT BACK TO REST.STILL WITH BI PAP SET UP BY THE RT. STABLE LETICIA THE NIGHT AND SLEPT WELL. BLOOD SUGAR CHECKED DONE 137, 2 UNITS OF INSULIN GIVEN LETICIA SQ AT DIFF SITE. NO SIGNS OF ANY ACUTE DISTRESS NOTED. BREATHING EVEN AND NON-LABORED. ALL DUE MEDS GIVEN AND ALL NEEDS MET. COOMBS TO GRAVITY DRAINING WELL. KEPT HIM WARM AND COMFORTABLE AT ALL TIMES. ON SEMI FOWLERS POSITION WITH SIDE RAILS X2 UP AND BED IN LOW AND LOCK IN POSITION. PLACE CALL LIGHT AT REACH. WILL ENDORSE TO AM NURSE FOR CONTINUITY OF CARE.
--- NOTE | 2019-07-27 07:00 | NUR ---
RN INITIAL NOTE PATIENT IN BED, ASLEEP ON ON NOCTURNAL BIPAP. ALERT AND ORIENTED X4. NO COMPLAINS OF ANY PAIN NOR SOB AT THIS TIME. HAS COOMBS CATH WITH CLEAR AND YELLOW URINE. HAS A RIGHT UA MIDLINE, SL. DC PLANNING PENDING BECAUSE OF INSURANCE AUTHORIZATION. BED LOCKED AND IN LOWEST POSITION. CALL LIGHT WITHIN REACH. WILL CONTINUE TO MONITOR
[2019-07-27] MEDS: ALBUTEROL HALF STRENGTH 1.25 MG/3 ML VIAL.NEB NEB SCH ×3 (07:36→19:50)
[2019-07-27 08:00] VITALS: BP 131/45
[2019-07-27] MEDS: ASPIRIN EC 81 MG TABLET.DR PO SCH (08:44)
[2019-07-27] MEDS: FUROSEMIDE 40 MG TABLET PO SCH (08:44)
[2019-07-27] MEDS: GLIMEPIRIDE 4 MG TABLET PO SCH ×2 (08:44→17:15)
[2019-07-27] MEDS: TAMSULOSIN 0.4 MG CAP.SR.24H PO SCH (08:44)
[2019-07-27] MEDS: FLUOXETINE HCL 20 MG CAPSULE PO SCH (08:45)
[2019-07-27] MEDS: METOPROLOL TARTRATE 50 MG TABLET PO SCH ×2 (08:45→17:15)
[2019-07-27] MEDS: FLUTICASONE PROPIONATE 16 GM BOTTLE NS SCH (08:45)
[2019-07-27] MEDS: GABAPENTIN 300 MG CAPSULE PO SCH ×3 (08:45→17:15)
[2019-07-27] MEDS: Z GUARD REMEDY 2 OZ OINT TP SCH ×2 (08:48→21:42)
[2019-07-27 09:57] LABS: CALCIUM, SERUM 9.2 mg/dL (8.5-10.1); CREATININE 1.7 mg/dL (0.6-1.3); MAGNESIUM 1.9 mg/dL (1.8-2.4); POTASSIUM 4.1 mmol/L (3.5-5.1)
[2019-07-27 16:00] VITALS: BP 147/64
[2019-07-27] MEDS: *INSULIN REGULAR(HUMULIN R)HUM 100 UNIT/ML VIAL SQ PRN ×2 (17:40→21:36)
--- NOTE | 2019-07-27 18:41 | NUR ---
RN CLOSING NOTE PATIENT IN BED AWAKE AND ALERT. ALL MEDS GIVEN. ALL NEEDS MET. NO COMPLAINS OF ANY PAIN NOR SOB AT THIS TIME. ON 3L NC. HAS A RIGHT UA MIDLINE, SL. INSULIN COVERAGE GIVEN. AWAITING FOR INSURANCE AUTHORIZATION FOR DC. BED LOCKED AND IN LOWEST POSITION. CALL LIGHT WITHIN REACH. WILL ENDORSE TO NOC SHIFT FOR MANASA
--- NOTE | 2019-07-27 19:51 | NUR ---
MS RN OPENING NOTE RECEIVED PATIENT IN BED. A/O X3. ON OXYGEN 3L/MIN VIA NASAL CANNULA. RESPIRATIONS ARE EVEN AND UNLABORED. NO S/S SOB NOTED. DENIES PAIN AT THIS TIME. IN NO APPARENT DISTRESS. IV ACCESS IN EUSEBIO MIDLINE PATENT AND SALINE LOCKED. COOMBS CATHETER IS PRESENT AND DRAINING TO GRAVITY, URINE IS KACIE. BED IS LOW AND LOCKED, MANAGER OF ORGANIZATIONAL DEVELOPMENT RIALS UP X2, HOB ELEVATED IN HIGH FOWLERS, BED ALARM ON. CALL LIGHT WITHIN REACH. WILL CONTINUE TO MONITOR.
[2019-07-27 20:00] VITALS: BP 146/51
--- NOTE | 2019-07-27 20:15 | NUR ---
RT NOTE PT RECEIVED ON 28 % NASAL CANNULA. AWAKE/ALERT. PT REQUESTS TO BE PLACED ON BIPAP @ 0000. NO SOB NOTED AT THIS TIME.
[2019-07-27] MEDS: ENOXAPARIN SODIUM 40 MG/0.4 ML DISP.SYRIN SQ SCH (21:33)
[2019-07-27] MEDS: LATANOPROST EYE DROP 0.005% 2.5 ML BOTTLE OP SCH (21:33)
[2019-07-27] MEDS: INSULIN GLARGINE, 100 UNIT/ML CARTRIDGE SQ SCH (21:34)
[2019-07-28] VITALS: BP 138/67
[2019-07-28] MEDS: NITROGLYCERIN 30 GM TUBE TP SCH ×4 (00:56→17:44)
[2019-07-28 04:00] VITALS: BP 138/67
--- NOTE | 2019-07-28 04:39 | NUR ---
RT NOTE PT REFUSED BIPAP AT THIS TIME. PLACED PT BACK ON 28% NASAL CANNULA. NO SOB NOTED. NURSE, SLADE LEMOS.
[2019-07-28] MEDS: BLOOD SUGAR DIAGNOSTIC 1 EACH STRIP VI SCH ×4 (06:14→21:50)
--- NOTE | 2019-07-28 06:37 | NUR ---
MS RN CLOSING NOTE PATIENT IN BED. A/O X3. REMAINS ON OXYGEN 3L/MIN VIA NASAL CANNULA. RESPIRATIONS ARE EVEN AND UNLABORED. NO EPISODES SOB NOTED. NO C/O PAIN. NO DISTRESS NOTED. IV ACCESS MAINTAINED IN EUSEBIO MIDLINE PATENT AND SALINE LOCKED. COOMBS CATHETER REMAINS PRESENT AND DRAINING TO GRAVITY, URINE IS YELLOW AND CLEAR. BED IS LOW AND LOCKED, ENTERTAINER & COMIC RIALS UP X2, HOB ELEVATED IN HIGH FOWLERS, BED ALARM ON. CALL LIGHT WITHIN REACH. WILL ENDORSE TO NEXT SHIFT.
--- NOTE | 2019-07-28 07:30 | NUR ---
MS RN NOTES RECEIVED PATIENT IN BED/ A/OX3 , AWAKE , UNDERSTANDS COMMENDS. ON COOMBS CATHETER. NO SOB OR DISCOMFORT NOTED. WILL CONTINUE TO MONITOR.
[2019-07-28] MEDS: ALBUTEROL HALF STRENGTH 1.25 MG/3 ML VIAL.NEB NEB SCH ×3 (07:36→19:46)
[2019-07-28 07:50] LABS: CALCIUM, SERUM 9.3 mg/dL (8.5-10.1); CREATININE 1.6 mg/dL (0.6-1.3); POTASSIUM 4.3 mmol/L (3.5-5.1)
[2019-07-28 08:00] VITALS: BP 141/60
[2019-07-28] MEDS: FLUTICASONE PROPIONATE 16 GM BOTTLE NS SCH (09:12)
[2019-07-28] MEDS: ASPIRIN EC 81 MG TABLET.DR PO SCH (09:13)
[2019-07-28] MEDS: GABAPENTIN 300 MG CAPSULE PO SCH ×3 (09:14→17:43)
[2019-07-28] MEDS: FUROSEMIDE 40 MG TABLET PO SCH (09:14)
[2019-07-28] MEDS: METOPROLOL TARTRATE 50 MG TABLET PO SCH ×2 (09:14→17:00)
[2019-07-28] MEDS: FLUOXETINE HCL 20 MG CAPSULE PO SCH (09:14)
[2019-07-28] MEDS: GLIMEPIRIDE 4 MG TABLET PO SCH ×2 (09:15→17:37)
[2019-07-28] MEDS: TAMSULOSIN 0.4 MG CAP.SR.24H PO SCH (09:15)
[2019-07-28] MEDS: Z GUARD REMEDY 2 OZ OINT TP SCH ×2 (09:16→21:13)
[2019-07-28] MEDS: INSULIN REGULAR, HUMAN 100 UNIT/ML 3 ML VIAL SQ PRN ×2 (12:26→17:36)
[2019-07-28 16:00] VITALS: BP 144/68
--- NOTE | 2019-07-28 17:42 | NUR ---
MS RN NOTES HELD METROPROLOL D/T LOW HR 55
--- NOTE | 2019-07-28 19:16 | NUR ---
MS RN NOTES PATIENT IN BED/ A/OX3 , AWAKE. NO MAJOR CHANGES DURING SHIFT. ALL NEED ATTENDED. NO SOB OR DISCOMFORT NOTED. ENDORCED TO TOOL SHAPER SET UP OPERATOR NURSE FOR MANASA.
--- NOTE | 2019-07-28 19:38 | NUR ---
RN NOTES RECEIVED PATIENT AWAKE IN BED/ A/OX3 , RIGHT UPPER MIDLINE INTACT ANT PATENT, WITH COOMBS CATHETER INTACT AND PATENT DRAINING TO A YELLOW URINE OUTPUT, NO SOB OR DISCOMFORT NOTED. DENIES ANY PAIN, SAFETY MEASURES IN PLACE, CALL LIGHT WITH IN EASY REACH, WILL CONTINUE TO MONITOR ACCORDINGLY.
--- NOTE | 2019-07-28 19:48 | NUR ---
PT RECEIVED ON ROOM AIR. PT IS AWAKE/ALERT. PT REQUESTS TO BE PLACED ON BIPAP @ 0000. NO SOB NOTED AT THIS TIME. RN MAGDY NOTIFIED.
[2019-07-28 20:40] VITALS: BP 135/66
[2019-07-28] MEDS: ENOXAPARIN SODIUM 40 MG/0.4 ML DISP.SYRIN SQ SCH (21:14)
[2019-07-28] MEDS: LATANOPROST EYE DROP 0.005% 2.5 ML BOTTLE OP SCH (21:18)
[2019-07-28] MEDS: *INSULIN REGULAR(HUMULIN R)HUM 100 UNIT/ML VIAL SQ PRN (21:52)
[2019-07-28] MEDS: INSULIN GLARGINE, 100 UNIT/ML CARTRIDGE SQ SCH (21:54)
--- NOTE | 2019-07-29 00:02 | NUR ---
PT PLACED ON NOC BIPAP. BIPAP PLUGGED INTO RED OUTLET. ALARMS ON AND AUDIBLE. NO RESPIRATORY DISTRESS OR SOB NOTED AT THIS TIME. WILL CONTINUE TO MONITOR T/O SHIFT.
--- NOTE | 2019-07-29 00:10 | NUR ---
RN NOTES PATIENT PLACED ON BIPAP REQUESTED, TOLERATING WELL SATING 99%, WILL CONTINUE TO MONITOR ACCORDINGLY.
[2019-07-29 00:19] VITALS: BP 148/73
[2019-07-29] MEDS: NITROGLYCERIN 30 GM TUBE TP SCH ×5 (00:33→23:58)
[2019-07-29 04:00] VITALS: BP 138/55
[2019-07-29 04:35] VITALS: BP 137/66
--- NOTE | 2019-07-29 06:30 | NUR ---
RN NOTES ALL NEEDS ATTENDED AND MET, ABLE TO REST AND SLEPT AT INTERVALS, BI PAP TOLERATED WELL, SATING 99%-100%, SAFETY MEASURES IN PLACED ASPIRATION PRECAUTION EMPHASIZED, KEPT CLEAN DRY AND COMFORTABLE, REPOSITIONED FOR COMFORT, CALL LIGHT WITHIN EASY REACH. WILL ENDORSE TO AM NURSE FOR CONTINUITY OF CARE.
--- NOTE | 2019-07-29 07:12 | NUR ---
EDGING CATCHER OPENING NOTE RECEIVED REPORT FROM NOC SHIFT NURSE. PT ASLEEP IN BED, ON 02 VIA NC 3L/MIN AND NOCTURNAL BIPAP, SATURATING WELL, RESPIRATIONS EVEN AND UNLABORED, NO SIGNS OF RESPIRATORY DISTRESS NOTED. COOMBS CATHETER DRAINING CLEAR YELLOW URINE. RIGHT UPPER ARM MIDLINE INTACT,PATENT WITH CLEAN DRESSING. BED IN LOW POSITION, LOCKED, CALL LIGHT WITHIN REACH.
[2019-07-29] MEDS: BLOOD SUGAR DIAGNOSTIC 1 EACH STRIP VI SCH ×4 (07:43→21:36)
[2019-07-29 08:00] VITALS: BP_SYST 136; BP_SYST 144; BP_DIAS 63; BP_DIAS 65
[2019-07-29] MEDS: ALBUTEROL HALF STRENGTH 1.25 MG/3 ML VIAL.NEB NEB SCH ×3 (08:04→19:36)
[2019-07-29] MEDS: GABAPENTIN 300 MG CAPSULE PO SCH ×3 (08:29→17:28)
[2019-07-29] MEDS: FLUOXETINE HCL 20 MG CAPSULE PO SCH (08:29)
[2019-07-29] MEDS: FUROSEMIDE 40 MG TABLET PO SCH (08:29)
[2019-07-29] MEDS: TAMSULOSIN 0.4 MG CAP.SR.24H PO SCH (08:29)
[2019-07-29] MEDS: ASPIRIN EC 81 MG TABLET.DR PO SCH (08:29)
[2019-07-29] MEDS: METOPROLOL TARTRATE 50 MG TABLET PO SCH ×2 (08:30→17:28)
[2019-07-29] MEDS: GLIMEPIRIDE 4 MG TABLET PO SCH ×2 (08:30→17:28)
[2019-07-29] MEDS: Z GUARD REMEDY 2 OZ OINT TP SCH ×2 (08:38→21:49)
[2019-07-29] MEDS: FLUTICASONE PROPIONATE 16 GM BOTTLE NS SCH (08:38)
[2019-07-29] MEDS: INSULIN REGULAR, HUMAN 100 UNIT/ML 3 ML VIAL SQ PRN ×3 (08:38→17:48)
[2019-07-29 16:00] VITALS: BP_SYST 131; BP_SYST 161; BP_DIAS 61; BP_DIAS 74
--- NOTE | 2019-07-29 18:55 | NUR ---
PATIENT ACCOUNT SPECIALIST CLOSING NOTE PT ASLEEP IN BED, ON 02 VIA NC 3L/MIN, SATURATING WELL, RESPIRATIONS EVEN AND UNLABORED, NO SIGNS OF RESPIRATORY DISTRESS NOTED. COOMBS CATHETER DRAINING CLEAR YELLOW URINE. RIGHT UPPER ARM MIDLINE INTACT,PATENT WITH CLEAN DRESSING. BED IN LOW POSITION, LOCKED, CALL LIGHT WITHIN REACH. PROVIDED SAFETY AND COMFORT TO PT THROUGHOUT SHIFT, TURNED AND REPOSITIONED EVERY 2 HOURS,ALL DUE MEDS GIVEN. WILL ENDORSE TO NOC SHIFT NURSE.
--- NOTE | 2019-07-29 19:25 | NUR ---
MS RN RECEIVE PT IN BED AWAKE A/O X 3 WATCHING TV, RESPIRATIONS EVEN AND UNLABORED. NO S/S OF DISTRESS,WILL CONT TO MONITOR
--- NOTE | 2019-07-29 19:56 | NUR ---
RT NOTE PT RECEIVED ON 28% NASAL CANNULA. AWAKE/ALERT. TX GIVEN, NO ADVERSE REACTIONS NOTED. PT REQUESTS TO BE PLACED ON BIPAP @ 0000. RN AWARE.
[2019-07-29 20:00] VITALS: BP 138/55
[2019-07-29] MEDS: LATANOPROST EYE DROP 0.005% 2.5 ML BOTTLE OP SCH (21:36)
[2019-07-29] MEDS: INSULIN GLARGINE, 100 UNIT/ML CARTRIDGE SQ SCH (21:38)
[2019-07-29] MEDS: *INSULIN REGULAR(HUMULIN R)HUM 100 UNIT/ML VIAL SQ PRN (21:40)
[2019-07-29] MEDS: ENOXAPARIN SODIUM 40 MG/0.4 ML DISP.SYRIN SQ SCH (21:49)
[2019-07-30 04:00] VITALS: BP 153/54
[2019-07-30] MEDS: NITROGLYCERIN 30 GM TUBE TP SCH ×2 (05:46→11:34)
--- NOTE | 2019-07-30 06:32 | NUR ---
MS RN PT ASLEEP AND EASILY AWAKEN PT STILL ON BIPAP AT THIS TIME. TOLERATED SETTINGS. 100% 02 SAT. NO C/O OF PAIN AT THIS TIME. NEEDS ATTENDED AND ANTICIPATED, AM CARE RENDERED,KEPT CLEAN, DRY AND COMFORTABLE AT ALL TIMES. NO SOB. OFFLOAD HEELS AND ELBOWS AT ALL TIMES. RESPIRATION EVEN AND UNLABORED. SAFETY MEASURES AT ALL TIMES. WILL ENDORSE PLAN OF CARE.
[2019-07-30 07:04] LABS: BASOPHILS % (AUTO) 0.7 % (0.0-2.0); EOSINOPHILS % (AUTO) 5.5 % (0.0-6.0); HEMATOCRIT 33 % (39-51); LYMPHOCYTES # (AUTO) 1.8 /CMM (0.8-4.8); LYMPHOCYTES % (AUTO) 27.8 % (20.0-44.0); MEAN CORPUSCULAR HGB CONC 33 g/dl (31.0-36.0); MEAN CORPUSCULAR VOLUME 90 fL (80-96); MONOCYTES # (AUTO) 0.7 /CMM (0.1-1.30); MONOCYTES % (AUTO) 10.6 % (2.0-12.0); NEUTROPHILS # (AUTO) 3.6 /CMM (1.8-8.9); NEUTROPHILS % (AUTO) 55.4 % (43.0-81.0); PLATELET COUNT (AUTO) 169 /CMM (150-450); WHITE BLOOD COUNT (AUTO) 6.5 K/uL (4.3-11.0)
[2019-07-30 07:17] LABS: ALBUMIN 2.6 g/dL (3.4-5.0); BILIRUBIN,TOTAL 0.3 mg/dL (0.2-1.0); CREATININE 1.8 mg/dL (0.6-1.3); MAGNESIUM 1.8 mg/dL (1.8-2.4); PHOSPHORUS 4.7 mg/dL (2.5-4.9); POTASSIUM 4.3 mmol/L (3.5-5.1); TOTAL PROTEIN, SERUM 8.1 g/dL (6.4-8.2)
--- NOTE | 2019-07-30 07:21 | NUR ---
MATERIAL MIXER OPENING NOTE RECEIVED REPORT FROM NOC SHIFT NURSE. PT ASLEEP IN BED, ON NOCTURNAL BIPAP, SATURATING WELL, RESPIRATIONS EVEN AND UNLABORED, NO SIGNS OF RESPIRATORY DISTRESS NOTED. COOMBS CATHETER DRAINING CLEAR YELLOW URINE. RIGHT UPPER ARM MIDLINE INTACT,PATENT WITH CLEAN DRESSING. BED IN LOW POSITION, LOCKED, CALL LIGHT WITHIN REACH.
[2019-07-30] MEDS: BLOOD SUGAR DIAGNOSTIC 1 EACH STRIP VI SCH ×2 (07:46→11:43)
[2019-07-30] MEDS: INSULIN REGULAR, HUMAN 100 UNIT/ML 3 ML VIAL SQ PRN ×2 (07:48→11:47)
[2019-07-30] MEDS: ALBUTEROL HALF STRENGTH 1.25 MG/3 ML VIAL.NEB NEB SCH ×2 (07:50→12:49)
[2019-07-30 08:00] VITALS: BP 118/66
[2019-07-30] MEDS: Z GUARD REMEDY 2 OZ OINT TP SCH (08:40)
[2019-07-30] MEDS: ASPIRIN EC 81 MG TABLET.DR PO SCH (08:40)
[2019-07-30] MEDS: METOPROLOL TARTRATE 50 MG TABLET PO SCH (08:40)
[2019-07-30] MEDS: TAMSULOSIN 0.4 MG CAP.SR.24H PO SCH (08:40)
[2019-07-30] MEDS: GABAPENTIN 300 MG CAPSULE PO SCH ×2 (08:40→12:16)
[2019-07-30] MEDS: FLUOXETINE HCL 20 MG CAPSULE PO SCH (08:40)
[2019-07-30] MEDS: GLIMEPIRIDE 4 MG TABLET PO SCH (08:40)
[2019-07-30] MEDS: FLUTICASONE PROPIONATE 16 GM BOTTLE NS SCH (08:41)
[2019-07-30] MEDS: FUROSEMIDE 40 MG TABLET PO SCH (08:43)
[2019-07-30] MEDS ORDERED: PNEUMOCOCCAL 23-VAL P-SAC VAC 0.5 ML VIAL SQ ONE (11:00)
--- NOTE | 2019-07-30 11:10 | NUR ---
CALLED AND GAVE REPORT TO RAFAEL SALVADOR AT [facility].
[2019-07-30 11:34] VITALS: BP 130/76
--- NOTE | 2019-07-30 13:12 | NUR ---
GAVE REPORT TO MARYJANE FROM [facility]. ALL DISCHARGE PAPERWORK SIGNED, BELONGINGS ACCOUNTED FOR. REMOVED MIDLINE FROM RIGHT UPPER ARM. DRESSING APPLIED. COOMBS CATHETER LEFT IN PLACE- RAFAEL SALVADOR FROM [facility] REQUESTED.
--- NOTE | 2019-07-30 13:21 | NUR ---
LEFT UNIT IN STABLE CONDITION VIA [id number]
== END 2019-07-30 13:21 | DRG 871 ==
LOC: ER 15:02 → TELE1 17:20 → ICU 21:04 → TELE-TD 07-18 18:47 → TELE1 07-23 10:08 → MEDSG1 07-25 10:17
PROVIDERS: ADMIT Legal Medicine; ATTEND Internal Medicine
PROC: 5A09557 Assistance with Respiratory Ventilation, Greater than 96 Consecutive Hours, Continuous Positive Airway Pressure (ICD-10-PCS; principal; 2019-07-12)
PROC: 05H933Z Insertion of Infusion Device into Right Brachial Vein, Percutaneous Approach (ICD-10-PCS; 2019-07-13)
DX: A41.9 Sepsis, unspecified organism (principal); I50.33 Acute on chronic diastolic (congestive) heart failure; J96.22 Acute and chronic respiratory failure with hypercapnia; J96.21 Acute and chronic respiratory failure with hypoxia; D61.818 Other pancytopenia; E66.2 Morbid (severe) obesity with alveolar hypoventilation; N17.9 Acute kidney failure, unspecified; I13.0 Hypertensive heart and chronic kidney disease with heart failure and stage 1 through stage 4 chronic kidney disease, or unspecified chronic kidney disease; E87.0 Hyperosmolality and hypernatremia; L03.116 Cellulitis of left lower limb; L03.115 Cellulitis of right lower limb; D62 Acute posthemorrhagic anemia; E11.22 Type 2 diabetes mellitus with diabetic chronic kidney disease; E78.5 Hyperlipidemia, unspecified; N40.0 Benign prostatic hyperplasia without lower urinary tract symptoms; E11.40 Type 2 diabetes mellitus with diabetic neuropathy, unspecified; Z79.4 Long term (current) use of insulin; Z79.84 Long term (current) use of oral hypoglycemic drugs; Z79.82 Long term (current) use of aspirin; Z79.899 Other long term (current) drug therapy; Z68.38 Body mass index [BMI] 38.0-38.9, adult; J44.9 Chronic obstructive pulmonary disease, unspecified; M17.0 Bilateral primary osteoarthritis of knee; N18.3 Chronic kidney disease, stage 3 (moderate); J30.9 Allergic rhinitis, unspecified; D50.9 Iron deficiency anemia, unspecified; F41.9 Anxiety disorder, unspecified; H40.9 Unspecified glaucoma; I25.10 Atherosclerotic heart disease of native coronary artery without angina pectoris; I87.8 Other specified disorders of veins; D69.6 Thrombocytopenia, unspecified; T39.315A Adverse effect of propionic acid derivatives, initial encounter; Y92.129 Unspecified place in nursing home as the place of occurrence of the external cause
CPT/HCPCS: 36415; 36600; 71045-TC; 76770-TC; 80048-TC; 80053-TC; 80061-TC; 80202-TC; 81000-TC; 82272-TC; 82550-TC; 82570-TC; 82728-TC; 82803-TC; 82962-TC; 83540-TC; 83735-TC; 83880; 83970; 84100-TC; 84155; 84155-TC; 84165; 84300-TC; 84439-TC; 84443-TC; 84484-TC; 85025-TC; 87081-TC; 87086-TC; 90732; 92611-TC; 93307-TC; 93970-TC; 94660; 94760-TC; 94799-TC; 99082-TC; A4216; A6403; G0378; J1650; J1815; J1940; J2543; J2916; J3370; J3475; J7030; J7050; J7060